=== PATIENT | female | born 1935 | race Caucasian/White ===

== ENCOUNTER 2022-02-02 13:25 | Inpatient (IN) ==
--- NOTE | 2022-02-02 14:01 | Emergency Department Note ---
Impression & Plan TIAN (acute kidney injury), Dementia, Acute UTI, Hematuria, Elevated lactic acid level ED Provider Note Provider: Alfonso Rivera MD DATE OF SERVICE: 02/02/2022 CHIEF COMPLAINT: Bloody urine HISTORY OF PRESENT ILLNESS: Patient is a 86-year-old female with a past medical history including dementia, depression, hypertension, CKD, and anemia via ambulance from her care facility today reportedly with hematuria developing since yesterday. Patient herself unfortunately has some dementia is not a good historian. She does not relate that her urine is abnormal denies significant shortness breath or chest pain. Does report a little bit of abdominal tenderness on exam. Patient's paperwork does indicate the patient is on aspirin. Contacted the facility for additional history and nursing staff they report again that the patient began developed hematuria overnight. They report she did not void this morning or have much to eat the last day or 2. They states he is not the best eater. Otherwise her mental status is unchanged. There is no reported trauma or fevers or other vomiting. REVIEW OF SYSTEMS: HPI reviewed with the patient however she is not a good historian due to her dementia and doubt significant reliability here. PAST MEDICAL HISTORY: As noted above MEDICATIONS: Reviewed medications from her facility SOCIAL HISTORY: Resides at long-term care facility PHYSICAL EXAM: GENERAL: alert in no acute distress lying on the stretcher. Head: normocephalic and atraumatic EYES: No injection, discharge or icterus. NECK: Trachea midline. ENT: Mucous membranes pink and moist. Pharynx without erythema or exudate. LUNGS: Airway patent. No retractions. Breath sounds clear with good air entry bilaterally. HEART: Regular rate and rhythm. No chest wall tenderness ABDOMEN: Soft mild diffuse tenderness. With nursing staff completing a straight catheterization for mild erythema blood at the urethra noted with some subcutaneous small white nodules across the vulva. BACK: No bilateral flank tenderness. SKIN: Acyanotic, warm, dry, without rashes EXTREMITIES: Without swelling or obvious tenderness with a few subcutaneous seemingly slight bony protrusions along both shins that appear chronic. NEUROLOGICAL: No focal deficits. No aphasia. No facial droop or slurred speech. EK bpm normal sinus rhythm. Some artifact. No acute ST segment elevation or depression with incomplete right bundle branch block. QTc 489. Nonspecific inferior anterior T wave changes. Patient's laboratory studies and imaging reviewed. Differential includes Appendicitis, infections, diverticulitis, UTI, obstruction, mesenteric ischemia, aortic pathology, inflammatory bowel disease, renal colic, PUD, pancreatitis, biliary pathology, hernia, volvulus, constipation, as well as other pathologies. IMPRESSION/MEDICAL DECISION MAKING: Patient with underlying dementia no reported trauma or fevers. Here patient does only voice complaints to abdomen but not a good historian due to her dementia. Some mild diffuse abdominal tenderness with hematuria CT scan of the abdomen pelvis to be obtained. Basic blood work obtained. Straight cath performed with some bloody urine and clots of [place] color obtained but not a large amount. Lower suspicion for retention. Given gentle IV fluid hydration. Patient not tachycardic, febrile, or hypotensive. No leukocytosis however urinalysis shows blood and a lot of white blood cells and leuk esterase. Question infection. Lactate elevated 4.4. Given IV fluid hydration and will cover broadly at this time pending cultures Zosyn. Evidence of TIAN with creatinine elevated 2.1 today. Troponin also is elevated 91 although the patient denies any chest discomfort. EKG obtained. Lipase also somewhat elevated. CT the abdomen pelvis per radiology with evidence of cystitis but no evidence of hydronephrosis, bowel obstruction, kidney stone, or other significant abnormality per report. Again patient receiving IV fluid resuscitation received Zosyn. Believe likely infectious in nature. Given elevated lactate, dementia status, and evidence of poor hydration believe further care here at the hospital is indicated. Hospitalist contacted. DIAGNOSIS: Hematuria, acute UTI, elevated lactate DISPOSITION: Hospitalist will evaluate Past Med/Surg History Medical History CAD (coronary artery disease) Chronic kidney disease Dementia Depression HTN (hypertension) Hypercholesterolemia Osteoporosis Surgical History H/O total hysterectomy History of cholecystectomy Family History (Updated 02/02/22 @ 18:35 by Eldon Yost MD) Mother Asthma Diabetes Heart disease Social History Smoking Status: Never smoker Hx Alcohol Use: No Hx Substance Use: No Preferred Language: Maltese marital status: / current occupational status: retired Feels Safe at Home: Yes Dental Care, Regularly: No Allergies Allergies Allergy/AdvReac Type Severity Reaction Status Date / Time methadone Allergy Verified 12/08/21 15:26 propoxyphene Allergy Verified 12/08/21 15:26 Home Meds Home Medications Medication Instructions Recorded Confirmed ferrous sulfate 325 mg (65 mg 325 mg PO DAILY #30 tabs 12/31/18 02/02/22 iron) tablet metoprolol succinate 25 mg 12.5 mg PO DAILY 02/02/22 02/02/22 tablet,extended release 24 hr sertraline 25 mg tablet 25 mg PO DAILY 02/02/22 02/02/22 Previous Rx's Medication Instructions Recorded cholecalciferol (vitamin D3) 25 1,000 unit PO DAILY #30 tabs 05/24/21 mcg (1,000 unit) tablet sennosides 8.6 mg capsule 8.6 mg PO BID #60 caps 05/25/21 donepezil 10 mg tablet 10 mg PO DAILY #90 tabs 05/27/21 rosuvastatin 10 mg tablet 10 mg PO DAILY #90 tabs 06/21/21 aspirin 81 mg tablet,delayed 81 mg PO DAILY #90 tabs 06/24/21 release magnesium oxide 400 mg PO DAILY #30 caps 06/24/21 polyethylene glycol 3350 17 17 g PO DAILY #510 grams 10/22/21 gram/dose oral powder lisinopril 5 mg tablet 5 mg PO DAILY #30 tabs 12/08/21 Results & Data (ED) Vital Signs Vital Signs - 24 hr 02/02/22 13:25 02/02/22 13:56 02/02/22 20:00 Temperature 36.4 C L Temperature Source Oral Pulse Rate 73 73 63 Respiratory Rate 18 18 16 Respiratory Effort / Characteristics Non-Labored Spontaneous Respiratory Depth Normal Respiratory Pattern Regular Blood Pressure 135/75 136/36 L Blood Pressure Mean 95 69 Blood Pressure Position Lying Pulse Oximetry 94 94 Oxygen Delivery Method Room Air Room Air Room Air Sepsis Recent Fever Within 48 Hours No Sepsis New/Unexplained Change in Mental Status N/A Sepsis Action Taken by Nursing No Action Required Laboratory Data Result diagrams: 02/02/22 14:08 02/02/22 14:08 Lab Results 02/02/22 02/02/22 02/02/22 Range/Units 14:00 14:08 14:08 WBC (4.8-10.8) K/ul RBC (3.93-5.22) M/uL Hgb (12.0-16.0) g/dl Hct (34.1-44.9) % MCV (80.0-100.0) fL MCH (25.0-34.0) pg MCHC (32.0-36.0) g/dL RDW Std Deviation (36.4-46.3) fL RDW Coeff of Thelma (11.5-14.5) % Plt Count (130-400) K/uL MPV (9.4-12.3) fL Immature Gran % (Auto) % Neut % (Auto) % Lymph % (Auto) % [place] % (Auto) % Eos % (Auto) % Baso % (Auto) % Neut # (Auto) (1.4-6.5) K/uL Lymph # (Auto) (1.2-3.4) K/uL [place] # (Auto) (0.24-0.82) K/uL Eos # (Auto) (0-0.50) K/uL Baso # (Auto) (0-0.2) K/uL Immature Gran # (Auto) (0.00-0.02) K/uL PT 10.9 (9.0-12.0) Seconds INR 1.0 (0.9-1.1) Sodium (136-145) mmol/L Potassium (3.5-5.1) mmol/L Chloride (98-107) mmol/L Carbon Dioxide (21-32) mmol/L Anion Gap (3-11) BUN (6-23) mg/dl Creatinine (0.6-1.2) mg/dl Est Cr Clr Drug Dosing Est GFR ( Amer) ml/min Est GFR (Non-Af Amer) ml/min BUN/Creatinine Ratio (10-20) Glucose (70-99(Fasting)) mg/dl Lactate 4.4 H* (0.4-2.0) mmol/L Calcium (8.5-10.1) mg/dl Total Bilirubin (0.2-1.0) mg/dl AST (13-39) U/L ALT (7-52) U/L Alkaline Phosphatase (34-104) U/L Troponin I High Sens (0-14) pg/ml Total Protein (6.0-8.3) gm/dl Albumin (3.4-5.0) gm/dl Globulin (2.5-4.0) gm/dl Albumin/Globulin Ratio (0.9-2) Lipase (11-82) U/L Urine Color Brown Urine Appearance Turbid A (Clear) Urine pH >= 9.0 H (4.5-7.5) Ur Specific [place] <= 1.005 (1.000-1.030) Urine Protein 3+ H (Negative) Urine Glucose (UA) Negative (Negative) Urine Ketones Negative (Negative) Urine Blood 3+ H (Negative) Urine Nitrite Negative (Negative) Urine Bilirubin 1+ H (Negative) Urine Urobilinogen Negative (Negative) Ur Leukocyte Esterase 3+ H (Negative) Urine RBC >30 H (0-4) /hpf Urine WBC >30 H (0-5) /hpf Ur Epithelial Cells 0-5 (0-5) /lpf Amorphous Sediment Present A (None Prsent) Urine Bacteria Negative (Negative) SARS-CoV-2, RNA, NAAT (NEGATIVE) 02/02/22 02/02/22 02/02/22 Range/Units 14:08 14:08 20:46 WBC 8.57 (4.8-10.8) K/ul RBC 4.43 (3.93-5.22) M/uL Hgb 13.6 (12.0-16.0) g/dl Hct 41.8 (34.1-44.9) % MCV 94.4 (80.0-100.0) fL MCH 30.7 (25.0-34.0) pg MCHC 32.5 (32.0-36.0) g/dL RDW Std Deviation 45.1 (36.4-46.3) fL RDW Coeff of Thelma 13.1 (11.5-14.5) % Plt Count 246 (130-400) K/uL MPV 10.7 (9.4-12.3) fL Immature Gran % (Auto) 0.4 % Neut % (Auto) 67.4 % Lymph % (Auto) 19.0 % [place] % (Auto) 11.4 % Eos % (Auto) 1.4 % Baso % (Auto) 0.4 % Neut # (Auto) 5.78 (1.4-6.5) K/uL Lymph # (Auto) 1.63 (1.2-3.4) K/uL [place] # (Auto) 0.98 H (0.24-0.82) K/uL Eos # (Auto) 0.12 (0-0.50) K/uL Baso # (Auto) 0.03 (0-0.2) K/uL Immature Gran # (Auto) 0.03 H (0.00-0.02) K/uL PT (9.0-12.0) Seconds INR (0.9-1.1) Sodium 139 (136-145) mmol/L Potassium 5.0 (3.5-5.1) mmol/L Chloride 103 (98-107) mmol/L Carbon Dioxide 23 (21-32) mmol/L Anion Gap 13 H (3-11) BUN 54 H (6-23) mg/dl Creatinine 2.19 H (0.6-1.2) mg/dl Est Cr Clr Drug Dosing Not Reportable Est GFR ( Amer) 22.6 ml/min Est GFR (Non-Af Amer) 19.5 ml/min BUN/Creatinine Ratio 24.7 H (10-20) Glucose 83 (70-99(Fasting)) mg/dl Lactate 1.2 (0.4-2.0) mmol/L Calcium 9.8 (8.5-10.1) mg/dl Total Bilirubin 0.3 (0.2-1.0) mg/dl AST 18 (13-39) U/L ALT 8 (7-52) U/L Alkaline Phosphatase 71 (34-104) U/L Troponin I High Sens 91.6 H* (0-14) pg/ml Total Protein 6.9 (6.0-8.3) gm/dl Albumin 3.8 (3.4-5.0) gm/dl Globulin 3.1 (2.5-4.0) gm/dl Albumin/Globulin Ratio 1.2 (0.9-2) Lipase 188 H (11-82) U/L Urine Color Urine Appearance (Clear) Urine pH (4.5-7.5) Ur Specific [place] (1.000-1.030) Urine Protein (Negative) Urine Glucose (UA) (Negative) Urine Ketones (Negative) Urine Blood (Negative) Urine Nitrite (Negative) Urine Bilirubin (Negative) Urine Urobilinogen (Negative) Ur Leukocyte Esterase (Negative) Urine RBC (0-4) /hpf Urine WBC (0-5) /hpf Ur Epithelial Cells (0-5) /lpf Amorphous Sediment (None Prsent) Urine Bacteria (Negative) SARS-CoV-2, RNA, NAAT (NEGATIVE) 02/02/22 Range/Units Unknown WBC (4.8-10.8) K/ul RBC (3.93-5.22) M/uL Hgb (12.0-16.0) g/dl Hct (34.1-44.9) % MCV (80.0-100.0) fL MCH (25.0-34.0) pg MCHC (32.0-36.0) g/dL RDW Std Deviation (36.4-46.3) fL RDW Coeff of Thelma (11.5-14.5) % Plt Count (130-400) K/uL MPV (9.4-12.3) fL Immature Gran % (Auto) % Neut % (Auto) % Lymph % (Auto) % [place] % (Auto) % Eos % (Auto) % Baso % (Auto) % Neut # (Auto) (1.4-6.5) K/uL Lymph # (Auto) (1.2-3.4) K/uL [place] # (Auto) (0.24-0.82) K/uL Eos # (Auto) (0-0.50) K/uL Baso # (Auto) (0-0.2) K/uL Immature Gran # (Auto) (0.00-0.02) K/uL PT (9.0-12.0) Seconds INR (0.9-1.1) Sodium (136-145) mmol/L Potassium (3.5-5.1) mmol/L Chloride (98-107) mmol/L Carbon Dioxide (21-32) mmol/L Anion Gap (3-11) BUN (6-23) mg/dl Creatinine (0.6-1.2) mg/dl Est Cr Clr Drug Dosing Est GFR ( Amer) ml/min Est GFR (Non-Af Amer) ml/min BUN/Creatinine Ratio (10-20) Glucose (70-99(Fasting)) mg/dl Lactate (0.4-2.0) mmol/L Calcium (8.5-10.1) mg/dl Total Bilirubin (0.2-1.0) mg/dl AST (13-39) U/L ALT (7-52) U/L Alkaline Phosphatase (34-104) U/L Troponin I High Sens (0-14) pg/ml Total Protein (6.0-8.3) gm/dl Albumin (3.4-5.0) gm/dl Globulin (2.5-4.0) gm/dl Albumin/Globulin Ratio (0.9-2) Lipase (11-82) U/L Urine Color Urine Appearance (Clear) Urine pH (4.5-7.5) Ur Specific [place] (1.000-1.030) Urine Protein (Negative) Urine Glucose (UA) (Negative) Urine Ketones (Negative) Urine Blood (Negative) Urine Nitrite (Negative) Urine Bilirubin (Negative) Urine Urobilinogen (Negative) Ur Leukocyte Esterase (Negative) Urine RBC (0-4) /hpf Urine WBC (0-5) /hpf Ur Epithelial Cells (0-5) /lpf Amorphous Sediment (None Prsent) Urine Bacteria (Negative) SARS-CoV-2, RNA, NAAT NEGATIVE (NEGATIVE) Administered Medications Discontinued Medications Sodium Chloride (Nss) 500 mls @ 999 mls/hr IV .Q31M ONE Stop: 02/02/22 14:33 Last Infusion: 02/02/22 15:26 Dose: 0 mls/hr Documented By: Admin: 02/02/22 14:35 Dose: 999 mls/hr Documented By: ED Piperacillin Sod/Tazobactam Sod (Zosyn) 4.5 gm in 120 mls @ 240 mls/hr IV NOW ONE Stop: 02/02/22 15:32 Last Infusion: 02/02/22 16:07 Dose: 0 mls/hr Documented By: Admin: 02/02/22 15:26 Dose: 240 mls/hr Documented By: RUSLAN Lactated Ringer's (Lr) 1,000 mls @ 999 mls/hr IV .Q1H1M ONE Stop: 02/02/22 16:04 Last Infusion: 02/02/22 20:52 Dose: 0 mls/hr Documented By: Infusion: 02/02/22 16:07 Dose: 0 mls/hr Documented By: Admin: 02/02/22 15:26 Dose: 999 mls/hr Documented By: KV Midazolam HCl (Midazolam Hcl 1 Mg/Ml 2ml Vial) 0.5 mg IV NOW STA Stop: 02/02/22 16:15 Last Admin: 02/02/22 16:28 Dose: 0.5 mg Documented By: KV Imaging Data Radiologist's Impression: Abdomen/Pelvis CT 02/02/22 13:54 CT OF THE ABDOMEN AND PELVIS WITHOUT CONTRAST CLINICAL HISTORY: Abdominal pain, hematuria. COMPARISON STUDY: No previous studies for comparison. TECHNIQUE: Axial images of the abdomen and pelvis were obtained without IV contrast. Images were reviewed in the axial, sagittal, and coronal planes. Automated exposure control was utilized for the study. A dose lowering technique was utilized adhering to the principles of ALARA. FINDINGS: This exam is compromised given difficulty positioning. A moderate sized hiatal hernia with partially intrathoracic stomach is noted. No pneumatos is, free air or portal venous gas is present. No renal or ureteral calculi are present. There are possible tiny bladder calculi. Note is made of moderate bladder wall thickening with adjacent stranding. There is trace gas within the bladder. There is no hydronephrosis. Water attenuation left renal lesion probably reflects a cyst. Moderate renal atrophy is noted. Evaluation of the remainder of the abdomen and pelvis is suboptimal on this unenhanced exam. Note is made of cardiomegaly with extensive coronary artery calcification. Unenhanced images of liver, spleen, adrenal glands and pancreas are unremarkable. There is no evidence for a bowel obstruction. Colonic diverticulosis is noted. There is no evidence for acute diverticulitis. There is no lymphadenopathy. No acute fracture within visualized skeletal structures. IVC filter is in place. IMPRESSION: 1. Moderate bladder wall thickening with adjacent stranding. This favors cystitis and could be correlated with urinalysis. Possible tiny bladder calculi. 2. No urinary calculi or hydronephrosis. 3. No bowel obstruction. Colonic diverticulosis without evidence for acute diverticulitis. 4. Hiatal hernia with partially intrathoracic stomach. 5. Exam compromised given difficulty positioning. ACT 112: Negative or not required by law. Electronically signed by: Srinivasa Zamudio M.D. 02/02/2022 5:13 PM Discharge Plan Visit Data Chief Complaint: Hematuria ED Provider: Alfonso Rivera Discharge Problem: TIAN (acute kidney injury), Dementia, Acute UTI, Hematuria, Elevated lactic acid level Patient Disposition: Being Evaluated by Hospitalist Forms Stand Alone Forms: My [facility] Prescriptions Prescriptions: No Action cholecalciferol (vitamin D3) 25 mcg (1,000 unit) tablet 1,000 unit PO DAILY Qty: 30 0RF sennosides 8.6 mg capsule 8.6 mg PO BID Qty: 60 11RF donepezil 10 mg tablet 10 mg PO DAILY Qty: 90 0RF rosuvastatin 10 mg tablet 10 mg PO DAILY Qty: 90 3RF aspirin 81 mg tablet,delayed release (DR/EC) 81 mg PO DAILY Qty: 90 1RF magnesium oxide 400 mg magnesium capsule 400 mg PO DAILY Qty: 30 0RF polyethylene glycol 3350 17 gram/dose powder 17 g PO DAILY Qty: 510 5RF lisinopril 5 mg tablet 5 mg PO DAILY Qty: 30 5RF ferrous sulfate 325 mg (65 mg iron) tablet 325 mg PO DAILY Qty: 30 sertraline 25 mg tablet 25 mg PO DAILY metoprolol succinate 25 mg tablet extended release 24 hr 12.5 mg PO DAILY Referrals Referrals: Adis Esquivel MD [Physician] - : Dementia Qualifiers: Dementia type: unspecified type Hematuria Qualifiers: Hematuria type: gross Qualified Code(s): R31.0 - Gross hematuria
[2022-02-02] MEDS ORDERED: SODIUM CHLORIDE 0.9% 500 ML IV ONE (14:03)
[2022-02-02 14:25] LABS: Basophils # (auto) 0.03 K/uL (0-0.2); Basophils % (auto) 0.4 %; Eosinophils # (auto) 0.12 K/uL (0-0.50); Eosinophils % (auto) 1.4 %; Hematocrit (blood only) 41.8 % (34.1-44.9); Hemoglobin 13.6 g/dl (12.0-16.0); Immature Granulocytes # (auto) 0.03 K/uL (0.00-0.02); Immature Granulocytes % (auto) 0.4 %; Lymphocytes # (auto) 1.63 K/uL (1.2-3.4); Mean Corpuscular Hemoglobin 30.7 pg (25.0-34.0); Mean Corpuscular Hgb Conc 32.5 g/dL (32.0-36.0); Mean Corpuscular Volume 94.4 fL (80.0-100.0); Mean Platelet Volume 10.7 fL (9.4-12.3); Monocytes # (auto) 0.98 K/uL (0.24-0.82); Monocytes % (auto) 11.4 %; Neutrophils # (auto) 5.78 K/uL (1.4-6.5); Neutrophils % (auto) 67.4 %; Platelet Count 246 K/uL (130-400); RDW Coefficient of Variation 13.1 % (11.5-14.5); RDW Standard Deviation 45.1 fL (36.4-46.3); Red Blood Count 4.43 M/uL (3.93-5.22); White Blood Count 8.57 K/ul (4.8-10.8)
[2022-02-02 14:36] LABS: Prothrombin Time 10.9 Seconds (9.0-12.0)
[2022-02-02 14:52] LABS: Appearance Urine Turbid (Clear); Bilirubin Urine 1+ (Negative); Blood Urine 3+ (Negative); Color Urine Brown; Glucose Urine UA Negative (Negative); Ketones Urine Negative (Negative); Leukocyte Esterase Urine 3+ (Negative); Nitrite Urine Negative (Negative); Protein Urine 3+ (Negative); Specific Gravity Urine <= 1.005 (1.000-1.030); Urobilinogen Urine Negative (Negative); pH Urine >= 9.0 (4.5-7.5)
[2022-02-02 14:56] LABS: Epithelial Cell Urine 0-5 /lpf (0-5); RBC Urine >30 /hpf (0-4); WBC Urine >30 /hpf (0-5)
[2022-02-02 14:57] LABS: Amorphous Sediment Urine Present (None Prsent); Bacteria Urine Negative (Negative)
[2022-02-02] MEDS ORDERED: PIPERACILLIN/TAZOBACTAM 4.5 GM/120 ML BAG IV ONE (15:03)
[2022-02-02] MEDS ORDERED: LACTATED RINGER'S 1,000 ML IV ONE (15:04)
[2022-02-02 15:05] LABS: Alanine Aminotransferase 8 U/L (7-52); Albumin Globulin Ratio 1.2 (0.9-2); Albumin Level 3.8 gm/dl (3.4-5.0); Alkaline Phosphatase 71 U/L (34-104); Anion Gap 13 (3-11); Aspartate Aminotransferase 18 U/L (13-39); BUN Creatinine Ratio 24.7 (10-20); Bilirubin,Total 0.3 mg/dl (0.2-1.0); Blood Urea Nitrogen 54 mg/dl (6-23); Calcium 9.8 mg/dl (8.5-10.1); Carbon Dioxide 23 mmol/L (21-32); Chloride 103 mmol/L (98-107); Est GFR (African American) 22.6 ml/min; Est GFR (Non-African American) 19.5 ml/min; Globulin 3.1 gm/dl (2.5-4.0); Glucose 83 mg/dl (70-99(Fasting)); Lipase 188 U/L (11-82); Sodium 139 mmol/L (136-145); Total Protein 6.9 gm/dl (6.0-8.3)
[2022-02-02 15:10] LABS: Troponin I High Sensitivity 91.6 pg/ml (0-14)
[2022-02-02] MEDS ORDERED: MIDAZOLAM HCL 1 MG/ML 2ML VIAL IV STA (16:14)
--- NOTE | 2022-02-02 17:15 | CT Scan Report ---
CT OF THE ABDOMEN AND PELVIS WITHOUT CONTRAST CLINICAL HISTORY: Abdominal pain, hematuria. COMPARISON STUDY: No previous studies for comparison. TECHNIQUE: Axial images of the abdomen and pelvis were obtained without IV contrast. Images were revi ewed in the axial, sagittal, and coronal planes. Automated exposure control was utilized for the serge dy. A dose lowering technique was utilized adhering to the principles of ALARA. FINDINGS: This exam is compromised given difficulty positioning. A moderate sized hiatal hernia with partially intrathoracic stomach is noted. No pneumatosis, free air or portal venous gas is present. N o renal or ureteral calculi are present. There are possible tiny bladder calculi. Note is made of mod erate bladder wall thickening with adjacent stranding. There is trace gas within the bladder. There i s no hydronephrosis. Water attenuation left renal lesion probably reflects a cyst. Moderate renal atr ophy is noted. Evaluation of the remainder of the abdomen and pelvis is suboptimal on this unenhanced exam. Note is made of cardiomegaly with extensive coronary artery calcification. Unenhanced images o f liver, spleen, adrenal glands and pancreas are unremarkable. There is no evidence for a bowel obstr uction. Colonic diverticulosis is noted. There is no evidence for acute diverticulitis. There is no l ymphadenopathy. No acute fracture within visualized skeletal structures. IVC filter is in place. IMPRESSION: 1. Moderate bladder wall thickening with adjacent stranding. This favors cystitis and could be correl ated with urinalysis. Possible tiny bladder calculi. 2. No urinary calculi or hydronephrosis. 3. No bowel obstruction. Colonic diverticulosis without evidence for acute diverticulitis. 4. Hiatal hernia with partially intrathoracic stomach. 5. Exam compromised given difficulty positioning. ACT 112: Negative or not required by law. Electronically signed by: Srinivasa Zamudio M.D. 02/02/2022 5:13 PM
--- NOTE | 2022-02-02 18:26 | History & Physical Report ---
Date of Service February 02, 2022 Assessment & Plan (1) TIAN (acute kidney injury): (2) Hematuria: (3) Elevated lactic acid level: Plan: Hematuria Patient presents with hematuria, since yesterday UA obtained in ED In November patient seen in [place] ED, diagnosed with cystitis and hematuria, discharged on p.o. antibiotics Currently lactate also elevated at 4.4 and creatinine elevated at 2.19 Per staff at [facility], poor appetite for 2 to 3 days Received IV fluids in ED, and started on IV Zosyn Continue IV Zosyn for now, repeat lactate Urine culture, blood culture pending CT abdomen obtained 1. Moderate bladder wall thickening with adjacent stranding. This favors cystitis and could be correlated with urinalysis. Possible tiny bladder calculi. 2. No urinary calculi or hydronephrosis. If hematuria not improved, consider urology consult TIAN on CKD stage 3 Baseline creatinine seems to be 1.3-1.5 Current creatinine 2.19 Likely prerenal, as staff at [facility] reports poor p.o. intake for past 2 to 3 days IV fluids, repeat BMP in the morning Hold lisinopril Elevated troponin Elevation likely secondary to TIAN on CKD No chest pain reported by the patient or staff Repeat troponin, monitor on telemetry for now History of CAD, hyperlipidemia -Continue Crestor, metoprolol, hold aspirin for now in the setting of hematuria -Hold lisinopril Dementia -Continue donepezil, sertraline DVT ppx: No chemical prophylaxis for DVT at this time, as patient presents with hematuria Code: Not able to discuss CODE STATUS with the patient due to dementia, will need to review patient's paperwork from [facility] History of Present Illness Chief Complaint: Hematuria Primary Care Provider: Adis Fritz DO 86-year-old female, with history of dementia, CKD stage III, hypertension, CAD, hyperlipidemia, who presents from [facility], with hematuria. Per ED provider/[facility] staff, patient started to reside there beginning of December, for past few days she was not acting herself, and had very poor appetite for past 2 to 3 days. Overnight she developed hematuria. Due to dementia, patient is not able to provide much history. Per chart review, patient presented in November in [place] ED, with acute cystitis and hematuria as well, was treated at that time with cephalexin. Today on her evaluation in the ED, UA significant for gross hematuria, elevated lactate at 4.4, troponin elevated at 91.6. Creatinine elevated at 2.19. No complaints of chest pain. EKG reviewed, showing normal sinus rhythm, and incomplete right bundle branch block. CT abdomen pelvis also obtained for f urther evaluation. Blood cultures and urine culture obtained and pending. On my evaluation, patient does not provide any history. She is however awake, and in no distress. She says "hi" several times, but on my physical exam, she says "ouch" or "no". Very difficult to obtain any significant information from the patient herself. Allergies Allergy/AdvReac Type Severity Reaction Status Date / Time methadone Allergy Verified 12/08/21 15:26 propoxyphene Allergy Verified 12/08/21 15:26 Home Medications Medication Instructions Recorded Confirmed Type ferrous sulfate 325 mg (65 mg 325 mg PO DAILY #30 tabs 12/31/18 02/02/22 History iron) tablet cholecalciferol (vitamin D3) 25 1,000 unit PO DAILY #30 tabs 05/24/21 02/02/22 Rx mcg (1,000 unit) tablet sennosides 8.6 mg capsule 8.6 mg PO BID #60 caps 05/25/21 02/02/22 Rx donepezil 10 mg tablet 10 mg PO DAILY #90 tabs 05/27/21 02/02/22 Rx rosuvastatin 10 mg tablet 10 mg PO DAILY #90 tabs 06/21/21 02/02/22 Rx aspirin 81 mg tablet,delayed 81 mg PO DAILY #90 tabs 06/24/21 02/02/22 Rx release magnesium oxide 400 mg PO DAILY #30 caps 06/24/21 02/02/22 Rx polyethylene glycol 3350 17 17 g PO DAILY #510 grams 10/22/21 02/02/22 Rx gram/dose oral powder lisinopril 5 mg tablet 5 mg PO DAILY #30 tabs 12/08/21 02/02/22 Rx metoprolol succinate 25 mg 12.5 mg PO DAILY 02/02/22 02/02/22 History tablet,extended release 24 hr sertraline 25 mg tablet 25 mg PO DAILY 02/02/22 02/02/22 History Past Med/Surg History Medical History CAD (coronary artery disease) Chronic kidney disease Dementia Depression HTN (hypertension) Hypercholesterolemia Osteoporosis Surgical History H/O total hysterectomy History of cholecystectomy Family History (Updated 02/02/22 @ 18:35 by Eldon Yost MD) Mother Asthma Diabetes Heart disease Social History Smoking Status: Never smoker Hx Alcohol Use: No Hx Substance Use: No Preferred Language: Polish marital status: / current occupational status: retired Feels Safe at Home: Yes Dental Care, Regularly: No Review of Systems Review of Systems: Unobtainable due to cognitive status Physical Exam Constitutional: WD/WN, vitals as above Eyes: PERRL, conjunctivae normal, anicteric sclerae ENMT: external ear and nose normal, oropharynx normal Neck: trachea midline, no thyromegaly Respiratory: normal respiratory effort, lungs clear to auscultation Cardiovascular: RRR, no murmur, no edema Chest (Breasts): Chest: normal inspection of chest Gastrointestinal (Abdomen): normal bowel sounds, soft, nontender, no hepatosplenomegaly (says "ouch" when palpating abdomen, but then says "ouch" on any part of PE) Musculoskeletal: no cyanosis or clubbing, extremities motor strength 5/5 Skin: no rashes, warm and dry Neurologic: PERRL, EOMI, accommodation nl, no face palsy, no dysarthria Results & Data Results & Data ([facility]) Vital Signs (Past 12 Hours) Vital Signs Temp Pulse Resp BP Pulse Ox O2 Del Method 02/02/22 13:56 73 18 94 Room Air 02/02/22 13:25 36.4 C L 73 18 135/75 94 Room Air Laboratory Results 02/02/22 02/02/22 02/02/22 Range/Units Unknown 14:08 14:08 WBC 8.57 (4.8-10.8) K/ul RBC 4.43 (3.93-5.22) M/uL Hgb 13.6 (12.0-16.0) g/dl Hct 41.8 (34.1-44.9) % MCV 94.4 (80.0-100.0) fL MCH 30.7 (25.0-34.0) pg MCHC 32.5 (32.0-36.0) g/dL RDW Std Deviation 45.1 (36.4-46.3) fL RDW Coeff of Thelma 13.1 (11.5-14.5) % Plt Count 246 (130-400) K/uL MPV 10.7 (9.4-12.3) fL Immature Gran % (Auto) 0.4 % Neut % (Auto) 67.4 % Lymph % (Auto) 19.0 % [place] % (Auto) 11.4 % Eos % (Auto) 1.4 % Baso % (Auto) 0.4 % Neut # (Auto) 5.78 (1.4-6.5) K/uL Lymph # (Auto) 1.63 (1.2-3.4) K/uL [place] # (Auto) 0.98 H (0.24-0.82) K/uL Eos # (Auto) 0.12 (0-0.50) K/uL Baso # (Auto) 0.03 (0-0.2) K/uL Immature Gran # (Auto) 0.03 H (0.00-0.02) K/uL PT (9.0-12.0) Seconds INR (0.9-1.1) Sodium 139 (136-145) mmol/L Potassium 5.0 (3.5-5.1) mmol/L Chloride 103 (98-107) mmol/L Carbon Dioxide 23 (21-32) mmol/L Anion Gap 13 H (3-11) BUN 54 H (6-23) mg/dl Creatinine 2.19 H (0.6-1.2) mg/dl Est Cr Clr Drug Dosing Not Reportable Est GFR ( Amer) 22.6 ml/min Est GFR (Non-Af Amer) 19.5 ml/min BUN/Creatinine Ratio 24.7 H (10-20) Glucose 83 (70-99(Fasting)) mg/dl Lactate (0.4-2.0) mmol/L Calcium 9.8 (8.5-10.1) mg/dl Total Bilirubin 0.3 (0.2-1.0) mg/dl AST 18 (13-39) U/L ALT 8 (7-52) U/L Alkaline Phosphatase 71 (34-104) U/L Troponin I High Sens 91.6 H* (0-14) pg/ml Total Protein 6.9 (6.0-8.3) gm/dl Albumin 3.8 (3.4-5.0) gm/dl Globulin 3.1 (2.5-4.0) gm/dl Albumin/Globulin Ratio 1.2 (0.9-2) Lipase 188 H (11-82) U/L Urine Color Urine Appearance (Clear) Urine pH (4.5-7.5) Ur Specific [place] (1.000-1.030) Urine Protein (Negative) Urine Glucose (UA) (Negative) Urine Ketones (Negative) Urine Blood (Negative) Urine Nitrite (Negative) Urine Bilirubin (Negative) Urine Urobilinogen (Negative) Ur Leukocyte Esterase (Negative) Urine RBC (0-4) /hpf Urine WBC (0-5) /hpf Ur Epithelial Cells (0-5) /lpf Amorphous Sediment (None Prsent) Urine Bacteria (Negative) SARS-CoV-2, RNA, NAAT NEGATIVE (NEGATIVE) 02/02/22 02/02/22 02/02/22 Range/Units 14:08 14:08 14:00 WBC (4.8-10.8) K/ul RBC (3.93-5.22) M/uL Hgb (12.0-16.0) g/dl Hct (34.1-44.9) % MCV (80.0-100.0) fL MCH (25.0-34.0) pg MCHC (32.0-36.0) g/dL RDW Std Deviation (36.4-46.3) fL RDW Coeff of Thelma (11.5-14.5) % Plt Count (130-400) K/uL MPV (9.4-12.3) fL Immature Gran % (Auto) % Neut % (Auto) % Lymph % (Auto) % [place] % (Auto) % Eos % (Auto) % Baso % (Auto) % Neut # (Auto) (1.4-6.5) K/uL Lymph # (Auto) (1.2-3.4) K/uL [place] # (Auto) (0.24-0.82) K/uL Eos # (Auto) (0-0.50) K/uL Baso # (Auto) (0-0.2) K/uL Immature Gran # (Auto) (0.00-0.02) K/uL PT 10.9 (9.0-12.0) Seconds INR 1.0 (0.9-1.1) Sodium (136-145) mmol/L Potassium (3.5-5.1) mmol/L Chloride (98-107) mmol/L Carbon Dioxide (21-32) mmol/L Anion Gap (3-11) BUN (6-23) mg/dl Creatinine (0.6-1.2) mg/dl Est Cr Clr Drug Dosing Est GFR ( Amer) ml/min Est GFR (Non-Af Amer) ml/min BUN/Creatinine Ratio (10-20) Glucose (70-99(Fasting)) mg/dl Lactate 4.4 H* (0.4-2.0) mmol/L Calcium (8.5-10.1) mg/dl Total Bilirubin (0.2-1.0) mg/dl AST (13-39) U/L ALT (7-52) U/L Alkaline Phosphatase (34-104) U/L Troponin I High Sens (0-14) pg/ml Total Protein (6.0-8.3) gm/dl Albumin (3.4-5.0) gm/dl Globulin (2.5-4.0) gm/dl Albumin/Globulin Ratio (0.9-2) Lipase (11-82) U/L Urine Color Brown Urine Appearance Turbid A (Clear) Urine pH >= 9.0 H (4.5-7.5) Ur Specific [place] <= 1.005 (1.000-1.030) Urine Protein 3+ H (Negative) Urine Glucose (UA) Negative (Negative) Urine Ketones Negative (Negative) Urine Blood 3+ H (Negative) Urine Nitrite Negative (Negative) Urine Bilirubin 1+ H (Negative) Urine Urobilinogen Negative (Negative) Ur Leukocyte Esterase 3+ H (Negative) Urine RBC >30 H (0-4) /hpf Urine WBC >30 H (0-5) /hpf Ur Epithelial Cells 0-5 (0-5) /lpf Amorphous Sediment Present A (None Prsent) Urine Bacteria Negative (Negative) SARS-CoV-2, RNA, NAAT (NEGATIVE) Diagnostic Findings CT abdomen/pelvis FINDINGS: This exam is compromised given difficulty positioning. A moderate sized hiatal hernia with partially intrathoracic stomach is noted. No pneumatosis, free air or portal venous gas is present. No renal or ureteral calculi are present. There are possible tiny bladder calculi. Note is made of moderate bladder wall thickening with adjacent stranding. There is trace gas within the bladder. There is no hydronephrosis. Water attenuation left renal lesion probably reflects a cyst. Moderate renal atrophy is noted. Evaluation of the remainder of the abdomen and pelvis is suboptimal on this unenhanced exam. Note is made of cardiomegaly with extensive coronary artery calcification. Unenhanced images of liver, spleen, adrenal glands and pancreas are unremarkable. There is no evidence for a bowel obstruction. Colonic diverticulosis is noted. There is no evidence for acute diverticulitis. There is no lymphadenopathy. No acute fracture within visualized skeletal structures. IVC filter is in place. IMPRESSION: 1. Moderate bladder wall thickening with adjacent stranding. This favors cystitis and could be correlated with urinalysis. Possible tiny bladder calculi. 2. No urinary calculi or hydronephrosis. 3. No bowel obstruction. Colonic diverticulosis without evidence for acute diverticulitis. 4. Hiatal hernia with partially intrathoracic stomach. 5. Exam compromised given difficulty positioning. (1) Hematuria Hematuria type: gross Qualified Code(s): R31.0 - Gross hematuria
[2022-02-02] MEDS: PIPERACILLIN/TAZOBACTAM 3.375 GM in DEXTROSE 5% 100 ML IV SCH (22:37)
[2022-02-03 06:09] LABS: Hematocrit (blood only) 39.4 % (34.1-44.9); Hemoglobin 12.9 g/dl (12.0-16.0); Mean Corpuscular Hemoglobin 30.4 pg (25.0-34.0); Mean Corpuscular Hgb Conc 32.7 g/dL (32.0-36.0); Mean Corpuscular Volume 92.7 fL (80.0-100.0); Mean Platelet Volume 10.3 fL (9.4-12.3); Platelet Count 195 K/uL (130-400); RDW Coefficient of Variation 13.1 % (11.5-14.5); RDW Standard Deviation 44.4 fL (36.4-46.3); Red Blood Count 4.25 M/uL (3.93-5.22); White Blood Count 8.46 K/ul (4.8-10.8)
[2022-02-03 06:31] LABS: Anion Gap 7 (3-11); BUN Creatinine Ratio 25.4 (10-20); Blood Urea Nitrogen 45 mg/dl (6-23); Calcium 8.9 mg/dl (8.5-10.1); Carbon Dioxide 24 mmol/L (21-32); Chloride 107 mmol/L (98-107); Est GFR (African American) 29.2 ml/min; Est GFR (Non-African American) 25.2 ml/min; Glucose 98 mg/dl (70-99(Fasting)); Magnesium 1.9 mg/dl (1.7-2.4); Phosphorus 3.3 mg/dl (2.5-4.9); Potassium 4.5 mmol/L (3.5-5.1); Sodium 138 mmol/L (136-145)
--- NOTE | 2022-02-03 07:02 | Hospitalist Progress Note ---
Date of Service February 03, 2022 Assessment & Plan (1) TIAN (acute kidney injury): (2) Hematuria: (3) Elevated lactic acid level: Plan: Hematuria Patient presents with hematuria od 1 day In November patient seen in [place] ED, diagnosed with cystitis and hematuria, discharged on p.o. antibiotics On admission- lactate also elevated at 4.4 and creatinine elevated at 2.19 Per staff at [facility], poor appetite for 2 to 3 days Received IV fluids in ED, and started on IV Zosyn Continue IV Zosyn for now, repeat lactate 1.2 Urine culture -positive for gram-negative bacilli blood culture pending CT abdomen obtained 1. Moderate bladder wall thickening with adjacent stranding. This favors cystitis and could be correlated with urinalysis. Possible tiny bladder calculi. 2. No urinary calculi or hydronephrosis. Urology consulted, appreciate their input Hematuria likely secondary to UTI, outpatient follow-up Per RN, pink-tinged urine in the morning, and clear urine this afternoon (02/03) TIAN on CKD stage 3 Baseline creatinine seems to be 1.3-1.5 On admission creatinine 2.19 Likely prerenal, as staff at [facility] reports poor p.o. intake for past 2 to 3 days IV fluids Hold lisinopril Cr improved at 1.7 after IVF Continue with gentle hydration, as patient continues to have very poor p.o. intake Elevated troponin Elevation likely secondary to TIAN on CKD No chest pain reported by the patient or staff Repeat troponin essentially unchanged, monitor on telemetry for now History of CAD, hyperlipidemia -Continue Crestor, metoprolol, hold aspirin for now in the setting of hematuria -Hold lisinopril Dementia -Continue donepezil, sertraline DVT ppx: No chemical prophylaxis for DVT at this time, as patient presents with hematuria CODE STATUS: FULL per [facility], code staus should be discussed further w/ [facility] staff and pt's family Admission and Anticipated Discharge Date Admission Date: February 02, 2022 Subjective Patient seen for follow-up of hematuria, history of dementia Patient cannot provide any meaningful history due to dementia Creatinine improved after IV fluids Urine culture positive for gram-negative bacilli [place]-tinged urine per RN this morning, cleared this afternoon Per RN, minimal p.o. intake Also discussed with urology Review of Systems Review of Systems: All systems reviewed & are unremarkable except as noted in Subjective Physical Exam Physical Exam: Constitutional:L elderly F in NAD Eyes: PERRL, EOMI, conju nctivae normal, an icteric sclerae ENMT: external ear and n ose normal, oropha rynx normal Neck: supple Respiratory: normal respiratory effort, lungs justine ar to auscultation Cardiovascular:L RRR, no murmur, no edema Chest (Breasts): Chest: normal insp ection of chest Gastrointestinal ( Abdomen): normal bowel sound s, soft, nontender Musculoskeletal: moves extremities Skin: no rashes, warm an d dry Neurologic: PERRL, EOMI,moves extremities, poor insight d/t nabor ia Results & Data Results & Data ([facility]) Vital Signs (Past 12 Hours) Vital Signs Pulse Resp BP O2 Del Method 02/03/22 05:00 48 L 14 02/03/22 04:30 47 L 17 02/03/22 04:19 143/55 H 02/03/22 04:19 59 L 18 02/03/22 04:00 56 L 17 02/03/22 03:30 47 L 20 02/03/22 03:00 58 L 25 H 02/03/22 02:30 65 14 02/03/22 02:00 59 L 16 02/03/22 01:30 57 L 19 02/03/22 01:00 59 L 11 L 02/03/22 00:30 47 L 19 02/03/22 00:00 55 L 23 02/02/22 23:30 65 21 02/02/22 23:00 58 L 9 L 02/02/22 22:30 47 L 15 02/02/22 22:00 51 L 14 02/02/22 21:30 55 L 18 02/02/22 21:00 54 L 14 02/02/22 20:30 63 14 02/02/22 20:01 136/36 L 02/02/22 20:01 63 17 02/02/22 20:00 61 13 02/02/22 19:52 63 19 02/02/22 19:52 144/64 H 02/02/22 19:30 69 17 02/02/22 20:00 63 16 136/36 L Room Air Laboratory Results 02/03/22 02/03/22 02/02/22 Range/Units 05:55 05:55 Unknown WBC 8.46 (4.8-10.8) K/ul RBC 4.25 (3.93-5.22) M/uL Hgb 12.9 (12.0-16.0) g/dl Hct 39.4 (34.1-44.9) % MCV 92.7 (80.0-100.0) fL MCH 30.4 (25.0-34.0) pg MCHC 32.7 (32.0-36.0) g/dL RDW Std Deviation 44.4 (36.4-46.3) fL RDW Coeff of Thelma 13.1 (11.5-14.5) % Plt Count 195 (130-400) K/uL MPV 10.3 (9.4-12.3) fL Immature Gran % (Auto) % Neut % (Auto) % Lymph % (Auto) % [place] % (Auto) % Eos % (Auto) % Baso % (Auto) % Neut # (Auto) (1.4-6.5) K/uL Lymph # (Auto) (1.2-3.4) K/uL [place] # (Auto) (0.24-0.82) K/uL Eos # (Auto) (0-0.50) K/uL Baso # (Auto) (0-0.2) K/uL Immature Gran # (Auto) (0.00-0.02) K/uL PT (9.0-12.0) Seconds INR (0.9-1.1) Sodium 138 (136-145) mmol/L Potassium 4.5 (3.5-5.1) mmol/L Chloride 107 (98-107) mmol/L Carbon Dioxide 24 (21-32) mmol/L Anion Gap 7 (3-11) BUN 45 H (6-23) mg/dl Creatinine 1.77 H D (0.6-1.2) mg/dl Est Cr Clr Drug Dosing Not Reportable Est GFR ( Amer) 29.2 ml/min Est GFR (Non-Af Amer) 25.2 ml/min BUN/Creatinine Ratio 25.4 H (10-20) Glucose 98 (70-99(Fasting)) mg/dl Lactate (0.4-2.0) mmol/L Calcium 8.9 (8.5-10.1) mg/dl Phosphorus 3.3 (2.5-4.9) mg/dl Magnesium 1.9 (1.7-2.4) mg/dl Total Bilirubin (0.2-1.0) mg/dl AST (13-39) U/L ALT (7-52) U/L Alkaline Phosphatase (34-104) U/L Troponin I High Sens (0-14) pg/ml Total Protein (6.0-8.3) gm/dl Albumin (3.4-5.0) gm/dl Globulin (2.5-4.0) gm/dl Albumin/Globulin Ratio (0.9-2) Lipase (11-82) U/L Urine Color Urine Appearance (Clear) Urine pH (4.5-7.5) Ur Specific [place] (1.000-1.030) Urine Protein (Negative) Urine Glucose (UA) (Negative) Urine Ketones (Negative) Urine Blood (Negative) Urine Nitrite (Negative) Urine Bilirubin (Negative) Urine Urobilinogen (Negative) Ur Leukocyte Esterase (Negative) Urine RBC (0-4) /hpf Urine WBC (0-5) /hpf Ur Epithelial Cells (0-5) /lpf Amorphous Sediment (None Prsent) Urine Bacteria (Negative) SARS-CoV-2, RNA, NAAT NEGATIVE (NEGATIVE) 02/02/22 02/02/22 02/02/22 Range/Units 20:46 20:46 14:08 WBC (4.8-10.8) K/ul RBC (3.93-5.22) M/uL Hgb (12.0-16.0) g/dl Hct (34.1-44.9) % MCV (80.0-100.0) fL MCH (25.0-34.0) pg MCHC (32.0-36.0) g/dL RDW Std Deviation (36.4-46.3) fL RDW Coeff of Thelma (11.5-14.5) % Plt Count (130-400) K/uL MPV (9.4-12.3) fL Immature Gran % (Auto) % Neut % (Auto) % Lymph % (Auto) % [place] % (Auto) % Eos % (Auto) % Baso % (Auto) % Neut # (Auto) (1.4-6.5) K/uL Lymph # (Auto) (1.2-3.4) K/uL [place] # (Auto) (0.24-0.82) K/uL Eos # (Auto) (0-0.50) K/uL Baso # (Auto) (0-0.2) K/uL Immature Gran # (Auto) (0.00-0.02) K/uL PT (9.0-12.0) Seconds INR (0.9-1.1) Sodium 139 (136-145) mmol/L Potassium 5.0 (3.5-5.1) mmol/L Chloride 103 (98-107) mmol/L Carbon Dioxide 23 (21-32) mmol/L Anion Gap 13 H (3-11) BUN 54 H (6-23) mg/dl Creatinine 2.19 H (0.6-1.2) mg/dl Est Cr Clr Drug Dosing Not Reportable Est GFR ( Amer) 22.6 ml/min Est GFR (Non-Af Amer) 19.5 ml/min BUN/Creatinine Ratio 24.7 H (10-20) Glucose 83 (70-99(Fasting)) mg/dl Lactate 1.2 (0.4-2.0) mmol/L Calcium 9.8 (8.5-10.1) mg/dl Phosphorus (2.5-4.9) mg/dl Magnesium (1.7-2.4) mg/dl Total Bilirubin 0.3 (0.2-1.0) mg/dl AST 18 (13-39) U/L ALT 8 (7-52) U/L Alkaline Phosphatase 71 (34-104) U/L Troponin I High Sens 91.3 H* 91.6 H* (0-14) pg/ml Total Protein 6.9 (6.0-8.3) gm/dl Albumin 3.8 (3.4-5.0) gm/dl Globulin 3.1 (2.5-4.0) gm/dl Albumin/Globulin Ratio 1.2 (0.9-2) Lipase 188 H (11-82) U/L Urine Color Urine Appearance (Clear) Urine pH (4.5-7.5) Ur Specific [place] (1.000-1.030) Urine Protein (Negative) Urine Glucose (UA) (Negative) Urine Ketones (Negative) Urine Blood (Negative) Urine Nitrite (Negative) Urine Bilirubin (Negative) Urine Urobilinogen (Negative) Ur Leukocyte Esterase (Negative) Urine RBC (0-4) /hpf Urine WBC (0-5) /hpf Ur Epithelial Cells (0-5) /lpf Amorphous Sediment (None Prsent) Urine Bacteria (Negative) SARS-CoV-2, RNA, NAAT (NEGATIVE) 02/02/22 02/02/22 02/02/22 Range/Units 14:08 14:08 14:08 WBC 8.57 (4.8-10.8) K/ul RBC 4.43 (3.93-5.22) M/uL Hgb 13.6 (12.0-16.0) g/dl Hct 41.8 (34.1-44.9) % MCV 94.4 (80.0-100.0) fL MCH 30.7 (25.0-34.0) pg MCHC 32.5 (32.0-36.0) g/dL RDW Std Deviation 45.1 (36.4-46.3) fL RDW Coeff of Thelma 13.1 (11.5-14.5) % Plt Count 246 (130-400) K/uL MPV 10.7 (9.4-12.3) fL Immature Gran % (Auto) 0.4 % Neut % (Auto) 67.4 % Lymph % (Auto) 19.0 % [place] % (Auto) 11.4 % Eos % (Auto) 1.4 % Baso % (Auto) 0.4 % Neut # (Auto) 5.78 (1.4-6.5) K/uL Lymph # (Auto) 1.63 (1.2-3.4) K/uL [place] # (Auto) 0.98 H (0.24-0.82) K/uL Eos # (Auto) 0.12 (0-0.50) K/uL Baso # (Auto) 0.03 (0-0.2) K/uL Immature Gran # (Auto) 0.03 H (0.00-0.02) K/uL PT 10.9 (9.0-12.0) Seconds INR 1.0 (0.9-1.1) Sodium (136-145) mmol/L Potassium (3.5-5.1) mmol/L Chloride (98-107) mmol/L Carbon Dioxide (21-32) mmol/L Anion Gap (3-11) BUN (6-23) mg/dl Creatinine (0.6-1.2) mg/dl Est Cr Clr Drug Dosing Est GFR ( Amer) ml/min Est GFR (Non-Af Amer) ml/min BUN/Creatinine Ratio (10-20) Glucose (70-99(Fasting)) mg/dl Lactate 4.4 H* (0.4-2.0) mmol/L Calcium (8.5-10.1) mg/dl Phosphorus (2.5-4.9) mg/dl Magnesium (1.7-2.4) mg/dl Total Bilirubin (0.2-1.0) mg/dl AST (13-39) U/L ALT (7-52) U/L Alkaline Phosphatase (34-104) U/L Troponin I High Sens (0-14) pg/ml Total Protein (6.0-8.3) gm/dl Albumin (3.4-5.0) gm/dl Globulin (2.5-4.0) gm/dl Albumin/Globulin Ratio (0.9-2) Lipase (11-82) U/L Urine Color Urine Appearance (Clear) Urine pH (4.5-7.5) Ur Specific [place] (1.000-1.030) Urine Protein (Negative) Urine Glucose (UA) (Negative) Urine Ketones (Negative) Urine Blood (Negative) Urine Nitrite (Negative) Urine Bilirubin (Negative) Urine Urobilinogen (Negative) Ur Leukocyte Esterase (Negative) Urine RBC (0-4) /hpf Urine WBC (0-5) /hpf Ur Epithelial Cells (0-5) /lpf Amorphous Sediment (None Prsent) Urine Bacteria (Negative) SARS-CoV-2, RNA, NAAT (NEGATIVE) 02/02/22 Range/Units 14:00 WBC (4.8-10.8) K/ul RBC (3.93-5.22) M/uL Hgb (12.0-16.0) g/dl Hct (34.1-44.9) % MCV (80.0-100.0) fL MCH (25.0-34.0) pg MCHC (32.0-36.0) g/dL RDW Std Deviation (36.4-46.3) fL RDW Coeff of Thelma (11.5-14.5) % Plt Count (130-400) K/uL MPV (9.4-12.3) fL Immature Gran % (Auto) % Neut % (Auto) % Lymph % (Auto) % [place] % (Auto) % Eos % (Auto) % Baso % (Auto) % Neut # (Auto) (1.4-6.5) K/uL Lymph # (Auto) (1.2-3.4) K/uL [place] # (Auto) (0.24-0.82) K/uL Eos # (Auto) (0-0.50) K/uL Baso # (Auto) (0-0.2) K/uL Immature Gran # (Auto) (0.00-0.02) K/uL PT (9.0-12.0) Seconds INR (0.9-1.1) Sodium (136-145) mmol/L Potassium (3.5-5.1) mmol/L Chloride (98-107) mmol/L Carbon Dioxide (21-32) mmol/L Anion Gap (3-11) BUN (6-23) mg/dl Creatinine (0.6-1.2) mg/dl Est Cr Clr Drug Dosing Est GFR ( Amer) ml/min Est GFR (Non-Af Amer) ml/min BUN/Creatinine Ratio (10-20) Glucose (70-99(Fasting)) mg/dl Lactate (0.4-2.0) mmol/L Calcium (8.5-10.1) mg/dl Phosphorus (2.5-4.9) mg/dl Magnesium (1.7-2.4) mg/dl Total Bilirubin (0.2-1.0) mg/dl AST (13-39) U/L ALT (7-52) U/L Alkaline Phosphatase (34-104) U/L Troponin I High Sens (0-14) pg/ml Total Protein (6.0-8.3) gm/dl Albumin (3.4-5.0) gm/dl Globulin (2.5-4.0) gm/dl Albumin/Globulin Ratio (0.9-2) Lipase (11-82) U/L Urine Color Brown Urine Appearance Turbid A (Clear) Urine pH >= 9.0 H (4.5-7.5) Ur Specific [place] <= 1.005 (1.000-1.030) Urine Protein 3+ H (Negative) Urine Glucose (UA) Negative (Negative) Urine Ketones Negative (Negative) Urine Blood 3+ H (Negative) Urine Nitrite Negative (Negative) Urine Bilirubin 1+ H (Negative) Urine Urobilinogen Negative (Negative) Ur Leukocyte Esterase 3+ H (Negative) Urine RBC >30 H (0-4) /hpf Urine WBC >30 H (0-5) /hpf Ur Epithelial Cells 0-5 (0-5) /lpf Amorphous Sediment Present A (None Prsent) Urine Bacteria Negative (Negative) SARS-CoV-2, RNA, NAAT (NEGATIVE) Medications Administered Current Inpatient Medications Donepezil HCl (Donepezil Hcl 10 Mg Tab) 10 mg PO DAILY [facility] Stop: 03/05/22 08:59 Last Admin: 02/03/22 12:58 Dose: Not Given Sodium Chloride (Nss 1000ml) 1,000 mls @ 80 mls/hr IV .[id number] ONE Stop: 02/03/22 19:32 Last Admin: 02/03/22 08:29 Dose: 80 mls/hr Piperacillin Sod/Tazobactam (Sod 3.375 gm/ Dextrose) 115 mls @ 28.75 mls/hr IV Q8H [facility]; Protocol Stop: 02/13/22 21:59 Metoprolol Succinate (Metoprolol Succ 25mg Ext Rel Tab) 12.5 mg PO DAILY [facility] Stop: 03/05/22 08:59 Last Admin: 02/03/22 12:58 Dose: Not Given Rosuvastatin Calcium (Rosuvastatin Calcium 10 Mg Tab) 10 mg PO DAILY [facility] Stop: 03/05/22 08:59 Last Admin: 02/03/22 12:58 Dose: Not Given Sertraline HCl (Sertraline Hcl 50 Mg Tablet) 25 mg PO DAILY [facility] Stop: 03/05/22 08:59 Last Admin: 02/03/22 12:59 Dose: Not Given (1) Hematuria Hematuria type: gross Qualified Code(s): R31.0 - Gross hematuria
[2022-02-03] MEDS ORDERED: SODIUM CHLORIDE 0.9% 1000ML 1,000 ML IV ONE (07:03)
--- NOTE | 2022-02-03 10:57 | Urology Consultation ---
Date of Consultation February 03, 2022 Assessment & Plan (1) Hematuria: 86 yo F admitted for hematuria, elevated lactate level, TIAN, and suspected UTI. - Urology consulted for recurrent hematuria. - She is afebrile, hemodynamically stable. - Lab work reviewed - creatinine 1.77, WBC 8.46, Hgb 12.9. - CTAP noted moderate bladder wall thickening with adjacent stranding, possible tiny bladder calculi, no urinary calculi or hydronephrosis. - Urine culture is prelim Gram negative bacilli. Blood cultures are pending. She is on IV Zosyn. - Per ER notes, hematuria with clots on arrival but appears to be clearing now at time of my exam. - She is incontinent and appears to be emptying well, post void residual was 15 mL - continue to monitor. - Continue broad spectrum antibiotics and narrow per sensitivities when available. - No acute intervention at this time. - Continue supportive care and antibiotics per primary team. - Will arrange outpatient follow-up with our service with possible cystoscopy. History of Present Illness Reason for Consultation: recurrent hematuria Requesting Physician: Dr. Yost Attending Physician: Eldon Yost MD History of Present Illness 86 yo F with past medical history of dementia, depression, hypertension, osteoporosis, hyperlipidemia, CAD, and chronic kidney disease admitted for hematuria, elevated lactate level, TIAN, and suspected UTI. Patient presented to [facility] emergency department on 02/02/2022 from her care facility due to reported hematuria x 1 day. Per admitting notes, her long term staff noted poor PO intake for the last 2-3 days and then developed gross hematuria overnight. No reported fevers or trauma. On arrival she was afebrile, hemodynamically stable. Lab work reviewed and creatinine was elevated at 2.19. CBC showed Hgb of 13.6 and no leukocytosis. Troponin noted to be elevated. Lactate was 4.4. UA notable for 3+ blood, 3+ leukocyte esterase, RBC > 30, WBC > 30, negative for bacteria and nitrates. Urine and blood cultures collected. CT abdomen and pelvis without contrast n oted moderate bladder wall thickening with adjacent stranding, possible tiny bladder calculi, no urinary calculi or hydronephrosis. Per ER notes, she was straight catheterized with some bloody urine and clots of [place] color, but not a significant amount. ER course included IV fluids and IV Zosyn. Urology consulted for evaluation of hematuria. Patient seen and examined in ER this AM. She is awake and resting in bed, appears comfortable and in no distress. Patient is not able to provide meaningful history or review of systems secondary to dementia. She denies pain when asked. Patient is voiding spontaneously, she is incontinent of urine and stool. RN at bedside reports pink tinged urine in brief earlier. Per chart review, she presented to [facility] ED in November for acute cystitis with hematuria, was treated with Cephalexin. Per chart review, never smoker. Allergies Allergy/AdvReac Type Severity Reaction Status Date / Time methadone Allergy Verified 12/08/21 15:26 propoxyphene Allergy Verified 12/08/21 15:26 Home Medications Medication Instructions Recorded Confirmed Type ferrous sulfate 325 mg (65 mg 325 mg PO DAILY #30 tabs 12/31/18 02/02/22 History iron) tablet cholecalciferol (vitamin D3) 25 1,000 unit PO DAILY #30 tabs 05/24/21 02/02/22 Rx mcg (1,000 unit) tablet sennosides 8.6 mg capsule 8.6 mg PO BID #60 caps 05/25/21 02/02/22 Rx donepezil 10 mg tablet 10 mg PO DAILY #90 tabs 05/27/21 02/02/22 Rx rosuvastatin 10 mg tablet 10 mg PO DAILY #90 tabs 06/21/21 02/02/22 Rx aspirin 81 mg tablet,delayed 81 mg PO DAILY #90 tabs 06/24/21 02/02/22 Rx release magnesium oxide 400 mg PO DAILY #30 caps 06/24/21 02/02/22 Rx polyethylene glycol 3350 17 17 g PO DAILY #510 grams 10/22/21 02/02/22 Rx gram/dose oral powder lisinopril 5 mg tablet 5 mg PO DAILY #30 tabs 12/08/21 02/02/22 Rx metoprolol succinate 25 mg 12.5 mg PO DAILY 02/02/22 02/02/22 History tablet,extended release 24 hr sertraline 25 mg tablet 25 mg PO DAILY 02/02/22 02/02/22 History Patient History Medical History CAD (coronary artery disease) Chronic kidney disease Dementia Depression HTN (hypertension) Hypercholesterolemia Osteoporosis Surgical History H/O total hysterectomy History of cholecystectomy Family History Mother Asthma Diabetes Heart disease Social History Smoking Status: Never smoker Hx Alcohol Use: No Hx Substance Use: No Preferred Language: American Communication Ability: Impaired Communication Ability Comment: dementia Property Management Bookkeeper Required: No Beliefs That Will Affect Care: None marital status: / Current Living Situation: [facility] Current Living Situation Comment: [facility] current occupational status: retired Other Information That Helps Us Care for You: No Feels Safe at Home: Yes Safety Concerns: Feels Safe At This Time Dental Care, Regularly: No Assistive Devices: Wheelchair Review of Systems Review of Systems: Unobtainable due to cognitive status Physical Exam Constitutional: + thin; no acute distress and not ill appearing Respiratory: normal respiratory effort; no respiratory distress and no labored breathing Cardiovascular: Extremities: no pedal edema Gastrointestinal (Abdomen): Inspection/Auscultation: abdomen normal to inspection; abdomen not distended Musculoskeletal: Head/Neck/Chest: normocephalic and head atraumatic Neurologic: moves all extremities and awake Psychiatric: Orientation: alert Genitourinary: urine in brief appears concentrated yellow, no clots Results & Data ([facility]) Vital Signs (Past 12 Hours) Vital Signs Temp Pulse Pulse Resp BP BP Pulse Ox 02/03/22 07:57 36.5 C 82 18 156/46 H 94 02/03/22 05:00 48 L 14 02/03/22 04:30 47 L 17 02/03/22 04:19 143/55 H 02/03/22 04:19 59 L 18 02/03/22 04:00 56 L 17 02/03/22 03:30 47 L 20 02/03/22 03:00 58 L 25 H 02/03/22 02:30 65 14 02/03/22 02:00 59 L 16 02/03/22 01:30 57 L 19 02/03/22 01:00 59 L 11 L 02/03/22 00:30 47 L 19 02/03/22 00:00 55 L 23 02/02/22 23:30 65 21 02/02/22 23:00 58 L [address] OF THE ABDOMEN AND PELVIS WITHOUT CONTRAST CLINICAL HISTORY: Abdominal pain, hematuria. COMPARISON STUDY: No previous studies for comparison. TECHNIQUE: Axial images of the abdomen and pelvis were obtained without IV contrast. Images were reviewed in the axial, sagittal, and coronal planes. Automated exposure control was utilized for the study. A dose lowering technique was utilized adhering to the principles of ALARA. FINDINGS: This exam is compromised given difficulty positioning. A moderate sized hiatal hernia with partially intrathoracic stomach is noted. No pneumatosis, free air or portal venous gas is present. No renal or ureteral calculi are present. There are possible tiny bladder calculi. Note is made of moderate bladder wall thickening with adjacent stranding. There is trace gas within the bladder. There is no hydronephrosis. Water attenuation left renal lesion probably reflects a cyst. Moderate renal atrophy is noted. Evaluation of the remainder of the abdomen and pelvis is suboptimal on this unenhanced exam. Note is made of cardiomegaly with extensive coronary artery calcification. Unenhanced images of liver, spleen, adrenal glands and pancreas are unremarkable. There is no evidence for a bowel obstruction. Colonic diverticulosis is noted. There is no evidence for acute diverticulitis. There is no lymphadenopathy. No acute fracture within visualized skeletal structures. IVC filter is in place. IMPRESSION: 1. Moderate bladder wall thickening with adjacent stranding. This favors cystitis and could be correlated with urinalysis. Possible tiny bladder calculi. 2. No urinary calculi or hydronephrosis. 3. No bowel obstruction. Colonic diverticulosis without evidence for acute diverticulitis. 4. Hiatal hernia with partially intrathoracic stomach. 5. Exam compromised given difficulty positioning. Results Complete Blood Count Results: RBC 4.25 M/uL (3.93-5.22) 02/03/22 WBC 8.46 K/ul (4.8-10.8) 02/03/22 Hgb 12.9 g/dl (12.0-16.0) 02/03/22 Hct 39.4 % (34.1-44.9) 02/03/22 Plt Count 195 K/uL (130-400) 02/03/22 Results BMP Results: Sodium 138 mmol/L (136-145) 02/03/22 Potassium 4.5 mmol/L (3.5-5.1) 02/03/22 Chloride 107 mmol/L (98-107) 02/03/22 Carbon Dioxide 24 mmol/L (21-32) 02/03/22 Anion Gap 7 (3-11) 02/03/22 BUN 45 mg/dl (6-23) H 02/03/22 Creatinine 1.77 mg/dl (0.6-1.2) H 02/03/22 Glucose 98 mg/dl (70-99(Fasting)) 02/03/22 PG Care Time/CCT Total # of Minutes Spent Total Time Spent with Patient: Total time spent is greater than 50% in coordination of care (as documented) at patient's floor/unit and/or counseling patient: Coding Level of Care Code 76710 Initial Inpt Care Lvl 2 Diagnoses Hematuria R31.0 Hematuria type: gross (1) Hematuria Hematuria type: gross Qualified Code(s): R31.0 - Gross hematuria
[2022-02-03] MEDS: DONEPEZIL HCL 10 MG TAB PO SCH (12:58)
[2022-02-03] MEDS: METOPROLOL SUCC 25MG EXT REL TAB PO SCH (12:58)
[2022-02-03] MEDS: ROSUVASTATIN CALCIUM 10 MG TAB PO SCH (12:58)
[2022-02-03] MEDS: SERTRALINE HCL 50 MG TABLET PO SCH (12:59)
[2022-02-03] MEDS: PIPERACILLIN/TAZOBACTAM 3.375 GM in DEXTROSE 5% 100 ML IV SCH ×2 (13:26→20:55)
[2022-02-03] MEDS ORDERED: PNEUMOCOCCAL Polysaccharide Vaccine 25mcg/0.5mL vial/Syr IM ONE (14:00)
--- NOTE | 2022-02-03 21:07 | Electrocardiogram Report ---
Test Reason : Blood Pressure : / mmHG Vent. Rate : 062 BPM Atrial Rate : 062 BPM P-R Int : 160 ms QRS Dur : 108 ms QT Int : 482 ms P-R-T Axes : 063 046 042 degrees QTc Int : 489 ms Poor data quality, interpretation may be adversely affected Normal sinus rhythm Low voltage QRS Incomplete right bundle branch block Nonspecific T wave abnormality Abnormal ECG No previous ECGs available Confirmed by Robb Mckenzie ([id number]) on 02/03/2022 9:07:06 PM Referred By: REFERRED SELF Confirmed By:Robb Mckenzie
[2022-02-04] MEDS: PIPERACILLIN/TAZOBACTAM 3.375 GM in DEXTROSE 5% 100 ML IV SCH ×2 (06:09→18:49)
--- NOTE | 2022-02-04 07:58 | Hospitalist Progress Note ---
Date of Service February 04, 2022 Assessment & Plan (1) TIAN (acute kidney injury): (2) Hematuria: (3) Elevated lactic acid level: Plan: Hematuria Patient presents with hematuria od 1 day In November patient seen in [place] ED, diagnosed with cystitis and hematuria, discharged on p.o. antibiotics On admission- lactate also elevated at 4.4 and creatinine elevated at 2.19 Per staff at [facility], poor appetite for 2 to 3 days Received IV fluids in ED, and started on IV Zosyn Continue IV Zosyn for now, repeat lactate 1.2 Urine culture -positive for Proteus mirabilis blood culture pending CT abdomen obtained 1. Moderate bladder wall thickening with adjacent stranding. This favors cystitis and could be correlated with urinalysis. Possible tiny bladder calculi. 2. No urinary calculi or hydronephrosis. Urology consulted, appreciate their input Hematuria likely secondary to UTI, outpatient follow-up Per RN, pink-tinged urine in the morning, and clear urine this afternoon (02/03) 02/04 hematuria seems resolved TIAN on CKD stage 3 Baseline creatinine seems to be 1.3-1.5 On admission creatinine 2.19 Likely prerenal, as staff at [facility] reports poor p.o. intake for past 2 to 3 days IV fluids Hold lisinopril Cr improved at 1.5 after IVF Continue with gentle hydration, as patient continues to have very poor p.o. intake Elevated troponin Elevation likely secondary to TIAN on CKD No chest pain reported by the patient or staff Repeat troponin essentially unchanged, monitor on telemetry for now History of CAD, hyperlipidemia -Continue Crestor, metoprolol, hold aspirin for now in the setting of hematuria -Hold lisinopril Dementia -Continue donepezil, sertraline DVT ppx: No chemical prophylaxis for DVT at this time, as patient presents with hematuria CODE STATUS: DNR per [facility] Admission and Anticipated Discharge Date Admission Date: February 02, 2022 Subjective Patient seen for follow-up of hematuria, history of dementia Patient cannot provide any meaningful history due to dementia Creatinine improved after IV fluids Urine culture positive for Proteus mirabilis Hematuria resolved Per RN, patient is able to take p.o. meds, and had a banana pudding this morning Also discussed with urology Update: changed Abx to PO and pt would not take it. Switched back to IV Review of Systems Review of Systems: All systems reviewed & are unremarkable except as noted in Subjective Physical Exam Physical Exam: Constitutional:L elderly F in NAD Eyes: PERRL, EOMI, conju nctivae normal, an icteric sclerae ENMT: external ear and n ose normal, oropha rynx normal Neck: supple Respiratory: normal respiratory effort, lungs justine ar to auscultation Cardiovascular:L RRR, no murmur, no edema Chest (Breasts): Chest: normal insp ection of chest Gastrointestinal ( Abdomen): normal bowel sound s, soft, nontender Musculoskeletal: moves extremities Skin: no rashes, warm an d dry Neurologic: PERRL, EOMI,moves extremities, poor insight d/t nabor ia Results & Data Results & Data ([facility]) Vital Signs (Past 12 Hours) Vital Signs Temp Pulse Pulse Resp BP Pulse Ox O2 Del Method 02/04/22 07:44 36.6 C 70 18 134/64 92 Room Air 02/03/22 23:12 48 L Laboratory Results 02/04/22 02/04/22 Range/Units 10:30 10:30 WBC 7.12 (4.8-10.8) K/ul RBC 4.26 (3.93-5.22) M/uL Hgb 12.8 (12.0-16.0) g/dl Hct 39.5 (34.1-44.9) % MCV 92.7 (80.0-100.0) fL MCH 30.0 (25.0-34.0) pg MCHC 32.4 (32.0-36.0) g/dL RDW Std Deviation 45.3 (36.4-46.3) fL RDW Coeff of Thelma 13.3 (11.5-14.5) % Plt Count 209 (130-400) K/uL MPV 10.6 (9.4-12.3) fL Sodium 139 (136-145) mmol/L Potassium 4.4 (3.5-5.1) mmol/L Chloride 109 H (98-107) mmol/L Carbon Dioxide 21 (21-32) mmol/L Anion Gap 9 (3-11) BUN 26 H (6-23) mg/dl Creatinine 1.55 H (0.6-1.2) mg/dl Est Cr Clr Drug Dosing 21.7 ml/min Est GFR ( Amer) 34.3 ml/min Est GFR (Non-Af Amer) 29.6 ml/min BUN/Creatinine Ratio 16.8 (10-20) Glucose 115 H (70-99(Fasting)) mg/dl Calcium 8.5 (8.5-10.1) mg/dl Phosphorus 2.6 (2.5-4.9) mg/dl Magnesium 1.6 L (1.7-2.4) mg/dl Medications Administered Current Inpatient Medications Donepezil HCl (Donepezil Hcl 10 Mg Tab) 10 mg PO DAILY [facility] Stop: 03/05/22 08:59 Last Admin: 02/03/22 12:58 Dose: Not Given Piperacillin Sod/Tazobactam (Sod 3.375 gm/ Dextrose) 115 mls @ 28.75 mls/hr IV Q8H [facility]; Protocol Stop: 02/13/22 21:59 Last Admin: 02/04/22 06:09 Dose: 28.8 mls/hr Metoprolol Succinate (Metoprolol Succ 25mg Ext Rel Tab) 12.5 mg PO DAILY [facility] Stop: 03/05/22 08:59 Last Admin: 02/03/22 12:58 Dose: Not Given Rosuvastatin Calcium (Rosuvastatin Calcium 10 Mg Tab) 10 mg PO DAILY [facility] Stop: 03/05/22 08:59 Last Admin: 02/03/22 12:58 Dose: Not Given Sertraline HCl (Sertraline Hcl 50 Mg Tablet) 25 mg PO DAILY [facility] Stop: 03/05/22 08:59 Last Admin: 02/03/22 12:59 Dose: Not Given (1) Hematuria Hematuria type: gross Qualified Code(s): R31.0 - Gross hematuria
[2022-02-04] MEDS: ROSUVASTATIN CALCIUM 10 MG TAB PO SCH (08:48)
[2022-02-04] MEDS: DONEPEZIL HCL 10 MG TAB PO SCH (08:49)
[2022-02-04] MEDS: SERTRALINE HCL 50 MG TABLET PO SCH (08:49)
[2022-02-04] MEDS: METOPROLOL SUCC 25MG EXT REL TAB PO SCH (08:50)
[2022-02-04 10:40] LABS: Hematocrit (blood only) 39.5 % (34.1-44.9); Hemoglobin 12.8 g/dl (12.0-16.0); Mean Corpuscular Hgb Conc 32.4 g/dL (32.0-36.0); Mean Corpuscular Volume 92.7 fL (80.0-100.0); Mean Platelet Volume 10.6 fL (9.4-12.3); Platelet Count 209 K/uL (130-400); RDW Coefficient of Variation 13.3 % (11.5-14.5); RDW Standard Deviation 45.3 fL (36.4-46.3); Red Blood Count 4.26 M/uL (3.93-5.22); White Blood Count 7.12 K/ul (4.8-10.8)
[2022-02-04 11:19] LABS: BUN Creatinine Ratio 16.8 (10-20); Calcium 8.5 mg/dl (8.5-10.1); Creatinine Clr Calc Pharmacy 21.7 ml/min; Est GFR (African American) 34.3 ml/min; Est GFR (Non-African American) 29.6 ml/min; Magnesium 1.6 mg/dl (1.7-2.4); Phosphorus 2.6 mg/dl (2.5-4.9); Potassium 4.4 mmol/L (3.5-5.1)
[2022-02-04] MEDS ORDERED: MAGNESIUM SULFATE / D5W 1 GM/100 ML BAG IV ONE (11:30)
[2022-02-04] MEDS: SODIUM CHLORIDE 0.9% 500 ML IV SCH (11:56)
[2022-02-04] MEDS ORDERED: AMOXICILLIN 500 MG CAP PO SCH (14:30)
[2022-02-04] MEDS: SODIUM CHLORIDE 0.9% 1000ML 1,000 ML IV SCH (22:02)
[2022-02-05] MEDS: PIPERACILLIN/TAZOBACTAM 3.375 GM in DEXTROSE 5% 100 ML IV SCH ×3 (02:01→17:53)
[2022-02-05] MEDS: SODIUM CHLORIDE 0.9% 500 ML IV SCH (06:52)
[2022-02-05 07:42] LABS: Hematocrit (blood only) 36.9 % (34.1-44.9); Hemoglobin 11.6 g/dl (12.0-16.0); Mean Corpuscular Hemoglobin 30.1 pg (25.0-34.0); Mean Corpuscular Hgb Conc 31.4 g/dL (32.0-36.0); Mean Corpuscular Volume 95.6 fL (80.0-100.0); Mean Platelet Volume 10.7 fL (9.4-12.3); Platelet Count 172 K/uL (130-400); RDW Coefficient of Variation 13.2 % (11.5-14.5); RDW Standard Deviation 46.4 fL (36.4-46.3); Red Blood Count 3.86 M/uL (3.93-5.22); White Blood Count 6.82 K/ul (4.8-10.8)
[2022-02-05 08:07] LABS: Calcium 7.9 mg/dl (8.5-10.1); Creatinine Clr Calc Pharmacy 24.7 ml/min; Est GFR (African American) 40.2 ml/min; Est GFR (Non-African American) 34.7 ml/min; Magnesium 1.6 mg/dl (1.7-2.4); Phosphorus 2.2 mg/dl (2.5-4.9); Potassium 3.8 mmol/L (3.5-5.1)
[2022-02-05] MEDS: METOPROLOL SUCC 25MG EXT REL TAB PO SCH (08:59)
[2022-02-05] MEDS: ROSUVASTATIN CALCIUM 10 MG TAB PO SCH (09:04)
[2022-02-05] MEDS: DONEPEZIL HCL 10 MG TAB PO SCH (09:05)
[2022-02-05] MEDS: SERTRALINE HCL 50 MG TABLET PO SCH (09:05)
[2022-02-05] MEDS: SODIUM CHLORIDE 0.9% 1000ML 1,000 ML IV SCH ×2 (10:42→22:01)
[2022-02-05] MEDS ORDERED: MAGNESIUM SULFATE / D5W 1 GM/100 ML BAG IV ONE (12:45)
--- NOTE | 2022-02-05 12:50 | Hospitalist Progress Note ---
Date of Service February 05, 2022 Assessment & Plan (1) TIAN (acute kidney injury): (2) Hematuria: (3) Elevated lactic acid level: Plan: Hematuria Patient presents with hematuria od 1 day In November patient seen in [place] ED, diagnosed with cystitis and hematuria, discharged on p.o. antibiotics On admission- lactate also elevated at 4.4 and creatinine elevated at 2.19 Per staff at [facility], poor appetite for 2 to 3 days Received IV fluids in ED, and started on IV Zosyn Continue IV Zosyn for now, repeat lactate 1.2 Urine culture -positive for Proteus mirabilis blood culture pending CT abdomen obtained 1. Moderate bladder wall thickening with adjacent stranding. This favors cystitis and could be correlated with urinalysis. Possible tiny bladder calculi. 2. No urinary calculi or hydronephrosis. Urology consulted, appreciate their input Hematuria likely secondary to UTI, outpatient follow-up Per RN, pink-tinged urine in the morning, and clear urine this afternoon (02/03) 02/04 hematuria seems resolved TIAN on CKD stage 3 Baseline creatinine seems to be 1.3-1.5 On admission creatinine 2.19 Likely prerenal, as staff at [facility] reports poor p.o. intake for past 2 to 3 days IV fluids Hold lisinopril Cr improved at 1.4 after IVF Continued with gentle hydration, as patient continues to have very poor p.o. intake Elevated troponin Elevation likely secondary to TIAN on CKD No chest pain reported by the patient or staff Repeat troponin essentially unchanged, monitor on telemetry for now History of CAD, hyperlipidemia -Continue Crestor, metoprolol, hold aspirin for now in the setting of hematuria -Hold lisinopril Dementia -Continue donepezil, sertraline DVT ppx: No chemical prophylaxis for DVT at this time, as patient presented with hematuria CODE STATUS: DNR per [facility] Admission and Anticipated Discharge Date Admission Date: February 02, 2022 Subjective Patient seen for follow-up of hematuria, history of dementia Patient cannot provide any meaningful history due to dementia Creatinine improved after IV fluids Urine culture positive for Proteus mirabilis Hematuria resolved Review of Systems Review of Systems: Unobtainable due to cognitive status Physical Exam Physical Exam: Constitutional:L elderly F in NAD Eyes: PERRL, EOMI, conju nctivae normal, an icteric sclerae ENMT: external ear and n ose normal, oropha rynx normal Neck: supple Respiratory: normal respiratory effort, lungs justine ar to auscultation Cardiovascular:L RRR, no murmur, no edema Chest (Breasts): Chest: normal insp ection of chest Gastrointestinal ( Abdomen): normal bowel sound s, soft, nontender Musculoskeletal: moves extremities Skin: no rashes, warm an d dry Neurologic: PERRL, EOMI,moves extremities, poor insight d/t nabor ia Results & Data Results & Data ([facility]) Vital Signs (Past 12 Hours) Vital Signs Temp Pulse Pulse Resp BP BP Pulse Ox 02/05/22 11:58 36.9 C 69 18 137/56 L 95 02/05/22 08:00 46 L 02/05/22 08:58 54 L 02/05/22 08:00 36.5 C 46 L 20 151/68 H 100 O2 Del Method 02/05/22 11:58 02/05/22 08:00 02/05/22 08:58 02/05/22 08:00 Room Air Laboratory Results 02/05/22 02/05/22 Range/Units 06:35 06:35 WBC 6.82 (4.8-10.8) K/ul RBC 3.86 L (3.93-5.22) M/uL Hgb 11.6 L (12.0-16.0) g/dl Hct 36.9 (34.1-44.9) % MCV 95.6 (80.0-100.0) fL MCH 30.1 (25.0-34.0) pg MCHC 31.4 L (32.0-36.0) g/dL RDW Std Deviation 46.4 H (36.4-46.3) fL RDW Coeff of Thelma 13.2 (11.5-14.5) % Plt Count 172 (130-400) K/uL MPV 10.7 (9.4-12.3) fL Sodium 139 (136-145) mmol/L Potassium 3.8 (3.5-5.1) mmol/L Chloride 110 H (98-107) mmol/L Carbon Dioxide 24 (21-32) mmol/L Anion Gap 5 (3-11) BUN 19 (6-23) mg/dl Creatinine 1.36 H (0.6-1.2) mg/dl Est Cr Clr Drug Dosing 24.7 ml/min Est GFR ( Amer) 40.2 ml/min Est GFR (Non-Af Amer) 34.7 ml/min BUN/Creatinine Ratio 14.0 (10-20) Glucose 87 (70-99(Fasting)) mg/dl Calcium 7.9 L (8.5-10.1) mg/dl Phosphorus 2.2 L (2.5-4.9) mg/dl Magnesium 1.6 L (1.7-2.4) mg/dl Medications Administered Current Inpatient Medications Amoxicillin (Amoxicillin 500 Mg Cap) 500 mg PO BID [facility]; Protocol Stop: 02/14/22 14:29 Last Admin: 02/04/22 17:06 Dose: Not Given Donepezil HCl (Donepezil Hcl 10 Mg Tab) 10 mg PO DAILY [facility] Stop: 03/05/22 08:59 Last Admin: 02/05/22 09:05 Dose: 10 mg Piperacillin Sod/Tazobactam (Sod 3.375 gm/ Dextrose) 115 mls @ 28.75 mls/hr IV Q8H [facility]; Protocol Stop: 02/14/22 17:59 Last Admin: 02/05/22 10:07 Dose: 28.8 mls/hr Sodium Chloride (Nss 1000ml) 1,000 mls @ 80 mls/hr IV .[id number] [facility] Stop: 03/06/22 11:44 Last Admin: 02/05/22 10:42 Dose: 80 mls/hr Magnesium Sulfate/Dextrose (Magnesium Sulfate / D5w) 1 gm in 100 mls @ 50 mls/hr IV ONE ONE Stop: 02/05/22 14:44 Metoprolol Succinate (Metoprolol Succ 25mg Ext Rel Tab) 12.5 mg PO DAILY [facility] Stop: 03/05/22 08:59 Last Admin: 02/05/22 08:59 Dose: Not Given Rosuvastatin Calcium (Rosuvastatin Calcium 10 Mg Tab) 10 mg PO DAILY [facility] Stop: 03/05/22 08:59 Last Admin: 02/05/22 09:04 Dose: 10 mg Sertraline HCl (Sertraline Hcl 50 Mg Tablet) 25 mg PO DAILY [facility] Stop: 03/05/22 08:59 Last Admin: 02/05/22 09:05 Dose: 25 mg (1) Hematuria Hematuria type: gross Qualified Code(s): R31.0 - Gross hematuria
[2022-02-06] MEDS: PIPERACILLIN/TAZOBACTAM 3.375 GM in DEXTROSE 5% 100 ML IV SCH ×3 (01:19→17:55)
[2022-02-06 06:28] LABS: Creatinine Clr Calc Pharmacy 28.5 ml/min; Est GFR (African American) 47.7 ml/min; Est GFR (Non-African American) 41.1 ml/min
--- NOTE | 2022-02-06 09:05 | Hospitalist Progress Note ---
Date of Service February 06, 2022 Assessment & Plan (1) TIAN (acute kidney injury): (2) Hematuria: (3) Elevated lactic acid level: Plan: Hematuria Patient presents with hematuria od 1 day In November patient seen in [place] [facility], diagnosed with cystitis and hematuria, discharged on p.o. antibiotics On admission- lactate also elevated at 4.4 and creatinine elevated at 2.19 Per staff at [facility], poor appetite for 2 to 3 days Received IV fluids in ED, and started on IV Zosyn Continue IV Zosyn for now, repeat lactate 1.2 Urine culture -positive for Proteus mirabilis blood culture pending CT abdomen obtained 1. Moderate bladder wall thickening with adjacent stranding. This favors cystitis and could be correlated with urinalysis. Possible tiny bladder calculi. 2. No urinary calculi or hydronephrosis. Urology consulted, appreciate their input Hematuria likely secondary to UTI, outpatient follow-up Per RN, pink-tinged urine in the morning, and clear urine this afternoon (02/03) 02/04 hematuria seems resolved NSVT - 02/06 - notified of 6 beat NSVT, patient asymptomatic BMP and mag level obtained Magnesium 1.6, will replete, goal magnesium over 2 TIAN on CKD stage 3 - resolved Baseline creatinine seems to be 1.3-1.5 On admission creatinine 2.19 Likely prerenal, as staff at [facility] reports poor p.o. intake for past 2 to 3 days IV fluids Hold lisinopril Cr improved at 1.2 after IVF Elevated troponin Elevation likely secondary to TIAN on CKD No chest pain reported by the patient or staff Repeat troponin essentially unchanged, monitor on telemetry for now History of CAD, hyperlipidemia -Continue Crestor, metoprolol -aspirin was on hold for hematuria - will resume now -Hold lisinopril Dementia -Continue donepezil, sertraline DVT ppx: No chemical prophylaxis for DVT at this time, as patient presented with hematuria CODE STATUS: DNR per [facility] Admission and Anticipated Discharge Date Admission Date: February 02, 2022 Subjective Patient seen for follow-up of hematuria, history of dementia This morning I was notified, patient had 6 beat NSVT. Patient in bed resting, denies any symptoms. Appears comfortable. Patient cannot provide any meaningful history due to dementia Creatinine improved after IV fluids Urine culture positive for Proteus mirabilis Hematuria resolved Review of Systems Review of Systems: Unobtainable due to cognitive status Physical Exam Physical Exam: Constitutional:L elderly F in NAD Eyes: PERRL, EOMI, conju nctivae normal, an icteric sclerae ENMT: external ear and n ose normal, oropha rynx normal Neck: supple Respiratory: normal respiratory effort, lungs justine ar to auscultation Cardiovascular:L RRR, no murmur, no edema Chest (Breasts): Chest: normal insp ection of chest Gastrointestinal ( Abdomen): normal bowel sound s, soft, nontender Musculoskeletal: moves extremities Skin: no rashes, warm an d dry Neurologic: PERRL, EOMI,moves extremities, poor insight d/t nabor ia Results & Data Results & Data ([facility]) Vital Signs (Past 12 Hours) Vital Signs Temp Pulse Pulse Resp BP Pulse Ox O2 Del Method 02/06/22 08:16 36.5 C 81 16 149/55 H 93 Room Air 02/06/22 07:31 50 L 02/06/22 03:29 70 02/05/22 22:50 36.2 C L 51 L 18 114/72 92 Room Air Laboratory Results 02/06/22 Range/Units 05:40 Creatinine 1.18 (0.6-1.2) mg/dl Est Cr Clr Drug Dosing 28.5 ml/min Est GFR ( Amer) 47.7 ml/min Est GFR (Non-Af Amer) 41.1 ml/min Medications Administered Current Inpatient Medications Amoxicillin (Amoxicillin 500 Mg Cap) 500 mg PO BID [facility]; Protocol Stop: 02/14/22 14:29 Last Admin: 02/04/22 17:06 Dose: Not Given Donepezil HCl (Donepezil Hcl 10 Mg Tab) 10 mg PO DAILY [facility] Stop: 03/05/22 08:59 Last Admin: 02/05/22 09:05 Dose: 10 mg Piperacillin Sod/Tazobactam (Sod 3.375 gm/ Dextrose) 115 mls @ 28.75 mls/hr IV Q8H [facility]; Protocol Stop: 02/14/22 17:59 Last Infusion: 02/06/22 05:19 Dose: Infused Metoprolol Succinate (Metoprolol Succ 25mg Ext Rel Tab) 12.5 mg PO DAILY [facility] Stop: 03/05/22 08:59 Last Admin: 02/05/22 08:59 Dose: Not Given Rosuvastatin Calcium (Rosuvastatin Calcium 10 Mg Tab) 10 mg PO DAILY [facility] Stop: 03/05/22 08:59 Last Admin: 02/05/22 09:04 Dose: 10 mg Sertraline HCl (Sertraline Hcl 50 Mg Tablet) 25 mg PO DAILY [facility] Stop: 03/05/22 08:59 Last Admin: 02/05/22 09:05 Dose: 25 mg (1) Hematuria Hematuria type: gross Qualified Code(s): R31.0 - Gross hematuria
[2022-02-06 09:59] LABS: BUN Creatinine Ratio 10.6 (10-20); Calcium 7.6 mg/dl (8.5-10.1); Creatinine Clr Calc Pharmacy 27.3 ml/min; Est GFR (African American) 45.4 ml/min; Est GFR (Non-African American) 39.1 ml/min; Magnesium 1.6 mg/dl (1.7-2.4); Potassium 3.9 mmol/L (3.5-5.1)
[2022-02-06] MEDS: SERTRALINE HCL 50 MG TABLET PO SCH (10:13)
[2022-02-06] MEDS: ROSUVASTATIN CALCIUM 10 MG TAB PO SCH (10:13)
[2022-02-06] MEDS: METOPROLOL SUCC 25MG EXT REL TAB PO SCH (10:14)
[2022-02-06] MEDS: DONEPEZIL HCL 10 MG TAB PO SCH (10:15)
[2022-02-06] MEDS ORDERED: MAGNESIUM SULFATE / D5W 1 GM/100 ML BAG IV ONE (11:32)
[2022-02-06] MEDS: MAGNESIUM OXIDE 400 MG TAB PO SCH (12:09)
[2022-02-06] MEDS: ASPIRIN 81 MG ECTAB PO SCH (12:09)
[2022-02-07] MEDS: PIPERACILLIN/TAZOBACTAM 3.375 GM in DEXTROSE 5% 100 ML IV SCH ×2 (02:11→10:53)
[2022-02-07] MEDS: ASPIRIN 81 MG ECTAB PO SCH (08:35)
[2022-02-07] MEDS: MAGNESIUM OXIDE 400 MG TAB PO SCH (08:35)
[2022-02-07] MEDS: METOPROLOL SUCC 25MG EXT REL TAB PO SCH (08:36)
[2022-02-07] MEDS: ROSUVASTATIN CALCIUM 10 MG TAB PO SCH (08:37)
[2022-02-07] MEDS: DONEPEZIL HCL 10 MG TAB PO SCH (08:37)
[2022-02-07] MEDS: SERTRALINE HCL 50 MG TABLET PO SCH (08:37)
--- NOTE | 2022-02-07 08:43 | Hospitalist Progress Note ---
Date of Service February 07, 2022 Assessment & Plan (1) TIAN (acute kidney injury): (2) Hematuria: (3) Elevated lactic acid level: Plan: Hematuria Patient presents with hematuria od 1 day In November patient seen in [place] ED, diagnosed with cystitis and hematuria, discharged on p.o. antibiotics On admission- lactate also elevated at 4.4 and creatinine elevated at 2.19 Per staff at [facility], poor appetite for 2 to 3 days Received IV fluids in ED, and started on IV Zosyn Continue IV Zosyn for now, repeat lactate 1.2 Urine culture -positive for Proteus mirabilis blood culture NGTD, follow final results CT abdomen obtained 1. Moderate bladder wall thickening with adjacent stranding. This favors cystitis and could be correlated with urinalysis. Possible tiny bladder calculi. 2. No urinary calculi or hydronephrosis. Urology consulted, appreciate their input Hematuria likely secondary to UTI, outpatient follow-up Per RN, pink-tinged urine in the morning, and clear urine this afternoon (02/03) 02/04 hematuria seems resolved NSVT - 02/06 - notified of 6 beat NSVT, patient asymptomatic BMP and mag level obtained Magnesium 1.6, will replete, goal magnesium over 2 TIAN on CKD stage 3 - resolved Baseline creatinine seems to be 1.3-1.5 On admission creatinine 2.19 Likely prerenal, as staff at [facility] reports poor p.o. intake for past 2 to 3 days IV fluids Hold lisinopril Cr improved at 1.2 after IVF Would hold lisinopril for next few days, check with PCP if/when to resume Elevated troponin Elevation likely secondary to TIAN on CKD No chest pain reported by the patient or staff Repeat troponin essentially unchanged, monitor on telemetry for now History of CAD, hyperlipidemia -Continue Crestor, metoprolol -aspirin was on hold for hematuria - will resume now -Hold lisinopril Dementia -Continue donepezil, sertraline DVT ppx: No chemical prophylaxis for DVT at this time, as patient presented with hematuria CODE STATUS: DNR per [facility] Admission and Anticipated Discharge Date Admission Date: February 02, 2022 Subjective Patient seen for follow-up of hematuria, UTI. TIAN, history of dementia Patient cannot provide any meaningful history due to dementia Creatinine improved after IV fluids Urine culture positive for Proteus mirabilis Hematuria resolved She is lying comfortably in bed in no acute distress, denies any complaints. Denies any chest pain shortness of breath abdominal pain. Says mostly "no" to everything. Not able to provide any meaningful history. Review of Systems Review of Systems: All systems reviewed & are unremarkable except as noted in Subjective and Unobtainable due to cognitive status Physical Exam Physical Exam: Constitutional:L elderly F in NAD Eyes: PERRL, EOMI, conju nctivae normal, an icteric sclerae ENMT: external ear and n ose normal, oropha rynx normal Neck: supple Respiratory: normal respiratory effort, lungs justine ar to auscultation Cardiovascular:L RRR, no murmur, no edema Chest (Breasts): Chest: normal insp ection of chest Gastrointestinal ( Abdomen): normal bowel sound s, soft, nontender Musculoskeletal: moves extremities Skin: no rashes, warm an d dry Neurologic: PERRL, EOMI,moves extremities, poor insight d/t nabor ia Results & Data Results & Data ([facility]) Vital Signs (Past 12 Hours) Vital Signs Temp Pulse Pulse Resp BP BP Pulse Ox 02/07/22 07:53 36.4 C L 51 L 16 125/47 L 93 02/06/22 22:23 56 L 18 146/75 H 02/06/22 22:53 58 L 02/06/22 20:43 O2 Del Method 02/07/22 07:53 Room Air 02/06/22 22:23 02/06/22 22:53 02/06/22 20:43 Room Air Laboratory Results 02/06/22 Range/Units 05:44 Sodium 141 (136-145) mmol/L Potassium 3.9 (3.5-5.1) mmol/L Chloride 114 H (98-107) mmol/L Carbon Dioxide 22 (21-32) mmol/L Anion Gap 5 (3-11) BUN 13 (6-23) mg/dl Creatinine 1.23 H (0.6-1.2) mg/dl Est Cr Clr Drug Dosing 27.3 ml/min Est GFR ( Amer) 45.4 ml/min Est GFR (Non-Af Amer) 39.1 ml/min BUN/Creatinine Ratio 10.6 (10-20) Glucose 84 (70-99(Fasting)) mg/dl Calcium 7.6 L (8.5-10.1) mg/dl Phosphorus 2.0 L (2.5-4.9) mg/dl Magnesium 1.6 L (1.7-2.4) mg/dl Medications Administered Current Inpatient Medications Amoxicillin (Amoxicillin 500 Mg Cap) 500 mg PO BID [facility]; Protocol Stop: 02/14/22 14:29 Last Admin: 02/04/22 17:06 Dose: Not Given Aspirin (Aspirin 81 Mg Ectab) 81 mg PO DAILY [facility] Stop: 03/08/22 11:44 Last Admin: 02/07/22 08:35 Dose: 81 mg Donepezil HCl (Donepezil Hcl 10 Mg Tab) 10 mg PO DAILY [facility] Stop: 03/05/22 08:59 Last Admin: 02/07/22 08:37 Dose: 10 mg Piperacillin Sod/Tazobactam (Sod 3.375 gm/ Dextrose) 115 mls @ 28.75 mls/hr IV Q8H [facility]; Protocol Stop: 02/14/22 17:59 Last Infusion: 02/07/22 06:20 Dose: Infused Magnesium Oxide (Magnesium Oxide 400 Mg Tab) 400 mg PO QAM [facility] Stop: 03/08/22 11:44 Last Admin: 02/07/22 08:35 Dose: 400 mg Metoprolol Succinate (Metoprolol Succ 25mg Ext Rel Tab) 12.5 mg PO DAILY [facility] Stop: 03/05/22 08:59 Last Admin: 02/07/22 08:36 Dose: Not Given Rosuvastatin Calcium (Rosuvastatin Calcium 10 Mg Tab) 10 mg PO DAILY [facility] Stop: 03/05/22 08:59 Last Admin: 02/07/22 08:37 Dose: 10 mg Sertraline HCl (Sertraline Hcl 50 Mg Tablet) 25 mg PO DAILY [facility] Stop: 03/05/22 08:59 Last Admin: 02/07/22 08:37 Dose: 25 mg (1) Hematuria Hematuria type: gross Qualified Code(s): R31.0 - Gross hematuria
--- NOTE | 2022-02-07 11:13 | Discharge Summary ---
Date of Service February 07, 2022 Admission HPI Per Admitting Provider 86-year-old female, with history of dementia, CKD stage III, hypertension, CAD, hyperlipidemia, who presents from [facility], with hematuria. Per ED provider/[facility] staff, patient started to reside there beginning of December, for past few days she was not acting herself, and had very poor appetite for past 2 to 3 days. Overnight she developed hematuria. Due to dementia, patient is not able to provide much history. Per chart review, patient presented in November in [place] ED, with acute cystitis and hematuria as well, was treated at that time with cephalexin. Today on her evaluation in the ED, UA significant for gross hematuria, elevated lactate at 4.4, troponin elevated at 91.6. Creatinine elevated at 2.19. No complaints of chest pain. EKG reviewed, showing normal sinus rhythm, and incomplete right bundle branch block. CT abdomen pelvis also obtained for further evaluation. Blood cultures and urine culture obtained and pending. On my evaluation, patient does not provide any history. She is however awake, and in no distress. She says "hi" several times, but on my physical exam, she says "ouch" or "no". Very difficult to obtain any significant information from the patient herself. Admission Exam Per Admitting Provider Constitutional: WD/WN, vitals as above Eyes: PERRL, conjunctivae normal, anicteric sclerae ENMT: external ear and nose normal, oropharynx normal Neck: trachea midline, no thyromegaly Respiratory: normal respiratory effort, lungs clear to auscultation Cardiovascular: RRR, no murmur, no edema Chest (Breasts): Chest: normal inspection of chest Gastrointestinal (Abdomen): normal bowel sounds, soft, nontender, no hep atosplenomegaly (says "ouch" when palpating abdomen, but then says "ouch" on any part of PE) Musculoskeletal: no cyanosis or clubbing, extremities motor strength 5/5 B Skin: no rashes, warm and dry Neurologic: PERRL, EOMI, accommodation nl, no face palsy, no dysarthria Principal Diagnosis Hematuria secondary to UTI, TIAN Poor oral intake Dementia Discharge Exam Constitutional: elderly F in NAD Eyes: PERRL, EOMI, conjunctivae normal, anicteric sclerae ENMT: external ear and nose normal, oropharynx normal Neck: supple Respiratory: normal respiratory effort, lungs clear to auscultation Cardiovascular: RRR, no murmur, no edema Chest (Breasts): Chest: normal inspection of chest Gastrointestinal (Abdomen): normal bowel sounds, soft, nontender Musculoskeletal: moves extremities Skin: no rashes, warm and dry Neurologic: PERRL, EOMI,moves extremities, poor insight d/t dementia Discharge Data Allergies Allergy/AdvReac Type Severity Reaction Status Date / Time methadone Allergy Verified 12/08/21 15:26 propoxyphene Allergy Verified 12/08/21 15:26 Consultations 02/02/22 17:30 ED Decision to Admit Stat 02/03/22 08:58 Consult Urology Routine Ordered Studies 02/02/22 13:54 CT abd pelvis wo con Stat FINDINGS: This exam is compromised given difficulty positioning. A moderate sized hiatal hernia with partially intrathoracic stomach is noted. No pneumatosis, free air or portal venous gas is present. No renal or ureteral calculi are present. There are possible tiny bladder calculi. Note is made of moderate bladder wall thickening with adjacent stranding. There is trace gas within the bladder. There is no hydronephrosis. Water attenuation left renal lesion probably reflects a cyst. Moderate renal atrophy is noted. Evaluation of the remainder of the abdomen and pelvis is suboptimal on this unenhanced exam. Note is made of cardiomegaly with extensive coronary artery calcification. Unenhanced images of liver, spleen, adrenal glands and pancreas are unremarkable. There is no evidence for a bowel obstruction. Colonic diverticulosis is noted. There is no evidence for acute diverticulitis. There is no lymphadenopathy. No acute fracture within visualized skeletal structures. IVC filter is in place. IMPRESSION: 1. Moderate bladder wall thickening with adjacent stranding. This favors cystitis and could be correlated with urinalysis. Possible tiny bladder calculi. 2. No urinary calculi or hydronephrosis. 3. No bowel obstruction. Colonic diverticulosis without evidence for acute diverticulitis. 4. Hiatal hernia with partially intrathoracic stomach. 5. Exam compromised given difficulty positioning. Hospital Course (1) TIAN (acute kidney injury): (2) Hematuria: (3) Elevated lactic acid level: Hematuria Patient presents with hematuria od 1 day In November patient seen in [place] ED, diagnosed with cystitis and hematuria, discharged on p.o. antibiotics On admission- lactate also elevated at 4.4 and creatinine elevated at 2.19 Per staff at [facility], poor appetite for 2 to 3 days Received IV fluids in ED, and started on IV Zosyn Continue IV Zosyn for now, repeat lactate 1.2 Urine culture -positive for Proteus mirabilis blood culture NGTD, follow final results CT abdomen obtained 1. Moderate bladder wall thickening with adjacent stranding. This favors cystitis and could be correlated with urinalysis. Possible tiny bladder calculi. 2. No urinary calculi or hydronephrosis. Urology consulted, appreciate their input Hematuria likely secondary to UTI, outpatient follow-up Per RN, pink-tinged urine in the morning, and clear urine this afternoon (02/03) 02/04 hematuria seems resolved NSVT - 02/06 - notified of 6 beat NSVT, patient asymptomatic BMP and mag level obtained Magnesium 1.6, will replete, goal magnesium over 2 TIAN on CKD stage 3 - resolved Baseline creatinine seems to be 1.3-1.5 On admission creatinine 2.19 Likely prerenal, as staff at [facility] reports poor p.o. intake for past 2 to 3 days IV fluids Hold lisinopril Cr improved at 1.2 after IVF Would hold lisinopril for next few days, check with PCP if/when to resume Elevated troponin Elevation likely secondary to TIAN on CKD No chest pain reported by the patient or staff Repeat troponin essentially unchanged, monitor on telemetry for now History of CAD, hyperlipidemia -Continue Crestor, metoprolol -aspirin was on hold for hematuria - will resume now -Hold lisinopril Dementia -Continue donepezil, sertraline Total Time Total Time Spent Total Time Spent (In Minutes): 40 Discharge Plan Discharge Items Patient Disposition: Transfer [facility] Reason For Visit: HEMATURIA Discharge Diagnosis: Hematuria secondary to UTI, TIAN Poor oral intake Dementia Activity: Per Instructions section Non-emergency contact: Primary Care Provider Call non-emergency contact if: you have any medication questions and your symptoms worsen Follow-up/Referrals: Adis Fritz DO [Primary Care Provider] - Diet: Regular Diet Texture: Easy to Chew Addtl Attending Provider Instructions: Follow-up with your primary care physician within the next few days. Finish antibiotic treatment for UTI. You should have help with feeding, and you should be encouraged to drink more fluids. Urology was also consulted, you may follow-up with them in their clinic. For next few days I would recommend to hold lisinopril, discuss further with your primary care physician if/when you should restart this medication. Pending Studies at Discharge: No Stand-Alone Forms: My [facility] Skilled Items Patient informed of condition?: Yes DNR: Yes Discharge Level of Care: Skilled Communicable Disease: No Discharge Prognosis: Stable Lines: None Urinary Catheter: No Medications and DC Order Prescriptions: New amoxicillin 500 mg Capsule 500 mg PO BID Qty: 3 0RF Continued cholecalciferol (vitamin D3) 25 mcg (1,000 unit) tablet 1,000 unit PO DAILY Qty: 30 0RF sennosides 8.6 mg capsule 8.6 mg PO BID Qty: 60 11RF donepezil 10 mg tablet 10 mg PO DAILY Qty: 90 0RF rosuvastatin 10 mg tablet 10 mg PO DAILY Qty: 90 3RF aspirin 81 mg tablet,delayed release (DR/EC) 81 mg PO DAILY Qty: 90 1RF magnesium oxide 400 mg magnesium capsule 400 mg PO DAILY Qty: 30 0RF polyethylene glycol 3350 17 gram/dose powder 17 g PO DAILY Qty: 510 5RF lisinopril 5 mg tablet 5 mg PO DAILY Qty: 30 5RF ferrous sulfate 325 mg (65 mg iron) tablet 325 mg PO DAILY Qty: 30 sertraline 25 mg tablet 25 mg PO DAILY metoprolol succinate 25 mg tablet extended release 24 hr 12.5 mg PO DAILY Discharge Orders: Discharge Order (Routine); Ordered 02/07/22 Ordered By: Eldon Yost Admission Data Admit Date/Time: 02/02/22 18:56 Attending Provider: Eldon Yost Admit Provider: Eldon Yost Primary Care Provider: Adis Fritz Other Providers: Errol Arreola ; Kael Bowers
== END 2022-02-07 15:33 | disposition home or self-care (01) | DRG 683 ==
LOC: ED 13:25 → EDINP 18:56 → 2N 02-03 14:26
DX: R74.02 Elevation of levels of lactic acid dehydrogenase [LDH]; E78.5 Hyperlipidemia, unspecified; Z79.82 Long term (current) use of aspirin; B96.4 Proteus (mirabilis) (morganii) as the cause of diseases classified elsewhere; Z66 Do not resuscitate; N17.8 Other acute kidney failure; I12.9 Hypertensive chronic kidney disease with stage 1 through stage 4 chronic kidney disease, or unspecified chronic kidney disease; I47.2 Ventricular tachycardia; R31.0 Gross hematuria; M81.0 Age-related osteoporosis without current pathological fracture; N18.30 Chronic kidney disease, stage 3 unspecified; N39.0 Urinary tract infection, site not specified; R77.8 Other specified abnormalities of plasma proteins; F03.90 Unspecified dementia, unspecified severity, without behavioral disturbance, psychotic disturbance, mood disturbance, and anxiety; Z87.440 Personal history of urinary (tract) infections; Z79.899 Other long term (current) drug therapy; I25.10 Atherosclerotic heart disease of native coronary artery without angina pectoris

== ENCOUNTER 2022-05-01 09:21 | Inpatient (IN) ==
[2022-05-01] MEDS ORDERED: SODIUM CHLORIDE 0.9% 500 ML IV STA (09:36)
--- NOTE | 2022-05-01 09:41 | Emergency Department Note ---
Impression & Plan TIAN (acute kidney injury), Acute UTI, Diarrhea, Acute pancreatitis ED Provider Note NAME: GUERITA TREVINO AGE: 87 SEX: F : 1935 ARRIVES VIA: Ambulance INFORMANT: [nursing, ems] ED PROVIDER(S): [Gomez Barksdale MD] CHIEF COMPLAINT: Vomiting and diarrhea HISTORY OF PRESENT ILLNESS: The patient is an 87-year-old female who presents with vomiting and diarrhea. She was found to be more lethargic today and sent for evaluation. There has been no reported fever, no reported blood in the stool. The patient arrives alone, no family at bedside. She has severe dementia and can provide no further history. As per nursing staff, the patient's pelvic area was covered in dried stool. Given the dementia, no further history obtainable. Of note, our nursing staff did contact her care center, she is a DNR. REVIEW OF SYSTEMS: Unobtainable given the mental state PMHx/PSHx: See Below SOCIAL HISTORY: See Below. PHYSICAL EXAM: GENERAL: Patient is in no acute distress. HEENT: No acute trauma, normocephalic atraumatic, mucous membranes dry, no nasal congestion, no scleral icterus. NECK: No stridor, no adenopathy, no meningismus, trachea is midline. LUNGS: Clear to auscultation bilaterally when listening anterior, no wheeze, no rhonchi, breath sounds equal. HEART: Without murmurs gallops or rubs, regular rate and rhythm. ABDOMEN: Soft, seems diffusely tender however, the patient does complain of pain when touched anywhere about her body. EXTREMITIES: No cyanosis, mild to moderate bilateral pedal edema, worse on the left. No extremity deformities. NEUROLOGIC: Awake, says ouch to every touch, no acute motor or sensory deficits, no focal weakness. SKIN: No rash, no jaundice, no diaphoresis. DIFFERENTIAL DIAGNOSIS: Appendicitis, colitis, C. difficile, viral or bacterial intestinal infection, diverticulitis, UTI, obstruction, mesenteric ischemia, aortic pathology, inflammatory bowel disease, renal colic, PUD, pancreatitis, biliary pathology, hernia, volvulus, constipation, as well as other pathologies. EMERGENCY DEPARTMENT COURSE/PROCEDURES: MEDICAL DECISION MAKING: There is no leukocytosis or concerning anemia. There is a normal platelet count. Potassium is slightly high at 5.7. Sodium slightly low at 133. There is acute kidney injury with a creatinine of 3.09. No concerning liver enzyme elevation. Lipase was elevated consistent with a mild pancreatitis. Urinalysis did suggest infection. Chest film did not show pneumonia or CHF. Abdominal and pelvis CT show potential duodenitis and even pancreatitis. No bowel obstruction, no acute surgical process by CT imaging. COVID test returned negative. On exam, the patient appeared dehydrated. She was not febrile. The patient received IV saline, 1.5 L. She was given IV ceftriaxone as antibiotic coverage. The patient presents with reported diarrhea and vomiting. She was not dehydrated clinically and appears to have acute kidney injury by laboratory work-up. There is concern for some duodenitis and pancreatitis by CT imaging. She has a UTI. Hospitalization is warranted. I spoke with case management, the on-call hospitalist has been consulted. Past Med/Surg History Medical History CAD (coronary artery disease) Chronic kidney disease Dementia Depression HTN (hypertension) Hypercholesterolemia Osteoporosis Surgical History H/O total hysterectomy History of cholecystectomy Family History Mother Asthma Diabetes Heart disease Social History Smoking Status: Unknown if ever smoked Hx Alcohol Use: No Hx Substance Use: No Preferred Language: Trinidadian Communication Ability: Impaired Sales And Service Representative Required: No Beliefs That Will Affect Care: None marital status: / Current Living Situation: [facility] Current Living Situation Comment: [facility] current occupational status: retired Feels Safe at Home: Yes Dental Care, Regularly: No Assistive Devices: Wheelchair Allergies Allergies Allergy/AdvReac Type Severity Reaction Status Date / Time methadone Allergy Verified 12/08/21 15:26 propoxyphene Allergy Verified 12/08/21 15:26 Home Meds Home Medications Medication Instructions Recorded Confirmed ferrous sulfate 325 mg (65 mg 325 mg PO DAILY #30 tabs 12/31/18 05/01/22 iron) tablet metoprolol succinate 25 mg 12.5 mg PO DAILY 02/02/22 02/02/22 tablet,extended release 24 hr sertraline 25 mg tablet 25 mg PO DAILY 02/02/22 05/01/22 Oyster Shell Calcium 500 500 mg PO 1XD 05/01/22 05/01/22 multivitamin 05/01/22 polyethylene glycol 3350 17 17 g PO PRN Constipation 05/01/22 gram/dose oral powder Previous Rx's Medication Instructions Recorded cholecalciferol (vitamin D3) 25 1,000 unit PO DAILY #30 tabs 05/24/21 mcg (1,000 unit) tablet sennosides 8.6 mg capsule 8.6 mg PO BID #60 caps 05/25/21 donepezil 10 mg tablet 10 mg PO DAILY #90 tabs 05/27/21 rosuvastatin 10 mg tablet 10 mg PO DAILY #90 tabs 06/21/21 aspirin 81 mg tablet,delayed 81 mg PO DAILY #90 tabs 06/24/21 release magnesium oxide 400 mg PO DAILY #30 caps 06/24/21 lisinopril 5 mg tablet 5 mg PO DAILY #30 tabs 12/08/21 amoxicillin 500 mg capsule 500 mg PO BID #3 caps 02/07/22 Results & Data (ED) Vital Signs Vital Signs - 24 hr 05/01/22 09:33 05/01/22 09:51 05/01/22 10:00 Temperature 36.4 C L Temperature Source Rectal Pulse Rate 79 81 80 Pulse Rate [Apical] Pulse Rhythm Regular Pulse Strength Normal Respiratory Rate 30 H 26 H 20 Respiratory Effort / Characteristics Non-Labored Spontaneous Respiratory Depth Normal Respiratory Pattern Regular Blood Pressure 124/61 Blood Pressure [Left Arm] Blood Pressure Mean 82 Blood Pressure Mean [Left Arm] Pulse Oximetry 95 Oxygen Delivery Method Room Air Sepsis Recent Fever Within 48 Hours No Sepsis New/Unexplained Change in Mental Status N/A Sepsis Action Taken by Nursing No Action Required 05/01/22 11:12 Temperature Temperature Source Pulse Rate Pulse Rate [Apical] 62 Pulse Rhythm Pulse Strength Respiratory Rate 16 Respiratory Effort / Characteristics Respiratory Depth Respiratory Pattern Blood Pressure Blood Pressure [Left Arm] 124/61 Blood Pressure Mean Blood Pressure Mean [Left Arm] 82 Pulse Oximetry 100 Oxygen Delivery Method Room Air Sepsis Recent Fever Within 48 Hours Sepsis New/Unexplained Change in Mental Status Sepsis Action Taken by [facility] Medications Current Medication List: was personally reviewed by me Laboratory Data Attestation: I reviewed the patient's lab results. Result diagrams: 05/01/22 10:00 05/01/22 14:32 Lab Results 05/01/22 05/01/22 05/01/22 Range/Units 10:00 10:00 11:00 WBC 7.79 (4.8-10.8) K/ul RBC 4.78 (3.93-5.22) M/uL Hgb 14.9 (12.0-16.0) g/dl Hct 45.2 H (34.1-44.9) % MCV 94.6 (80.0-100.0) fL MCH 31.2 (25.0-34.0) pg MCHC 33.0 (32.0-36.0) g/dL RDW Std Deviation 45.0 (36.4-46.3) fL RDW Coeff of Thelma 13.0 (11.5-14.5) % Plt Count 243 (130-400) K/uL MPV 10.3 (9.4-12.3) fL Immature Gran % (Auto) 0.6 % Neut % (Auto) 69.7 % Lymph % (Auto) 19.9 % King % (Auto) 9.0 % Eos % (Auto) 0.5 % Baso % (Auto) 0.3 % Neut # (Auto) 5.43 (1.4-6.5) K/uL Lymph # (Auto) 1.55 (1.2-3.4) K/uL King # (Auto) 0.70 (0.24-0.82) K/uL Eos # (Auto) 0.04 (0-0.50) K/uL Baso # (Auto) 0.02 (0-0.2) K/uL Immature Gran # (Auto) 0.05 H (0.00-0.02) K/uL Sodium 133 L (136-145) mmol/L Potassium 5.7 H (3.5-5.1) mmol/L Chloride 100 (98-107) mmol/L Carbon Dioxide 22 (21-32) mmol/L Anion Gap 11 (3-11) BUN 67 H (6-23) mg/dl Creatinine 3.09 H (0.6-1.2) mg/dl Est Cr Clr Drug Dosing 10.2 ml/min Est GFR ( Amer) 14.8 ml/min Est GFR (Non-Af Amer) 12.8 ml/min BUN/Creatinine Ratio 21.7 H (10-20) Glucose 127 H (70-99(Fasting)) mg/dl Calcium 9.1 (8.5-10.1) mg/dl Total Bilirubin 0.3 (0.2-1.0) mg/dl AST 17 (13-39) U/L ALT 9 (7-52) U/L Alkaline Phosphatase 84 (34-104) U/L Total Protein 6.8 (6.0-8.3) gm/dl Albumin 3.8 (3.4-5.0) gm/dl Globulin 3.0 (2.5-4.0) gm/dl Albumin/Globulin Ratio 1.3 (0.9-2) Lipase 144 H (11-82) U/L Urine Color Dark Yellow Urine Appearance Turbid A (Clear) Urine pH 8.0 H (4.5-7.5) Ur Specific [place] 1.018 (1.000-1.030) Urine Protein 4+ H (Negative) Urine Glucose (UA) Negative (Negative) Urine Ketones Trace H (Negative) Urine Blood 2+ H (Negative) Urine Nitrite Negative (Negative) Urine Bilirubin Negative (Negative) Urine Urobilinogen Negative (Negative) Ur Leukocyte Esterase 3+ H (Negative) Urine WBC (Auto) >30 H (0-5) /hpf Urine RBC (Auto) 5-10 H (0-4) /hpf U Hyaline Cast (Auto) 1-5 (0-5) /lpf U Epithel Cells (Auto) >30 H (0-5) /lpf Urine Bacteria (Auto) 4+ H (Negative) Granular Casts 1-5 H (0) /lpf Urine Yeast Not Reportable Administered Medications Discontinued Medications Sodium Chloride (Nss) 500 mls @ 999 mls/hr IV .Q31M STA Stop: 05/01/22 10:06 Last Infusion: 05/01/22 10:37 Dose: 0 mls/hr Documented By: Admin: 05/01/22 10:06 Dose: 999 mls/hr Documented By: AM Sodium Chloride (Nss 1000ml) 500 mls @ 999 mls/hr IV .Q31M ONE Stop: 05/01/22 10:47 Last Infusion: 05/01/22 11:23 Dose: 0 mls/hr Documented By: Admin: 05/01/22 10:52 Dose: 999 mls/hr Documented By: BRIDGETT Sodium Chloride (Nss 1000ml) 500 mls @ 999 mls/hr IV .Q31M ONE Stop: 05/01/22 11:21 Last Admin: 05/01/22 13:47 Dose: 999 mls/hr Documented By: BRIDGETT Ceftriaxone Sodium (Rocephin) 2,000 mg in 70 mls @ 140 mls/hr IV NOW STA Stop: 05/01/22 11:38 Last Infusion: 05/01/22 11:54 Dose: 0 mls/hr Documented By: Admin: 05/01/22 11:24 Dose: 140 mls/hr Documented By: BRIDGETT Imaging Data Radiologist's Impression: Abdomen/Pelvis CT 05/01/22 09:[address] WITHOUT CONTRAST CT DOSE: 625.58 mGy.cm HISTORY: Acute generalized abdominal pain with diarrhea diarrhea, poss colitis TECHNIQUE: Multiaxial CT images of the abdomen and pelvis were performed without contrast. A dose lowering technique was utilized adhering to the principles of ALARA. COMPARISON STUDY: 02/02/2022 FINDINGS: Limited exam secondary to positioning and lack of contrast. With extensive coronary artery calcifications. Mild subsegmental bibasilar atelectasis. No pneumatosis or pneumoperitoneum. Unremarkable unenhanced spleen, moderately atrophic pancreas. Adrenal glands are unremarkable. The gallbladder is not visualized and may be surgically absent. Liver is within normal limits. Symmetrically atrophic kidneys. Exophytic 10 mm cyst of the lateral interpolar left kidney. No urolith or hydronephrosis. Circumferential urinary bladder wall thickening with perivesicular stranding. Ill-defined hyperattenuation is noted within the dependent urinary bladder, greatest on the right. Hysterectomy. No adnexal mass lesion. Atherosclerosis of the aorta without aneurysm. Infrarenal IVC filter appears to be partially extraluminal. No lymphadenopathy identified. Moderate sized hiatal hernia with partially intrathoracic stomach. Mild wall thickening of the duodenum with trace adjacent stranding extending into the pancreaticoduodenal groove. Colonic diverticulosis without acute diverticulitis. Layering colonic air-fluid levels. The appendix is likely surgically absent. No bowel obstruction or colonic wall thickening. Prior ventral abdominal wall herniorrhaphy. Degenerative changes of the spine, pelvis and hips. IMPRESSION: 1. Mild wall thickening of the duodenum with trace adjacent inflammatory stranding extending to the pancreaticoduodenal groove. Findings are suspicious for a mild nonspecific duodenitis versus peptic ulcer disease. Correlation with serum lipase recommended to exclude pancreatitis. 2. No bowel obstruction or pneumoperitoneum. 3. Colonic air-fluid levels compatible with diarrheal illness. 4. Suggested cystitis with ill-defined dependent hyperattenuation suggestive of tiny urinary bladder calculi. A partially calcified urothelial lesion could appear similarly. No hydronephrosis. 5. Hiatal hernia. 6. Additional findings as above. ACT 112: Negative or not required by law. The above report was generated using voice recognition software. It may contain grammatical, syntax or spelling errors. Electronically signed by: Noah Negron M.D. 05/01/2022 10:46 AM Chest X-Ray 05/01/22 09:36 XR chest 1V portable HISTORY: 87 years-old Female weak acute weakness COMPARISON: Chest radiograph 02/25/2022 TECHNIQUE: Portable AP view of the chest FINDINGS: Cardiomediastinal and hilar silhouettes are within normal limits. The patient is mildly rotated towards the left. No pneumothorax, pleural effusion, airspace consolidation or overt pulmonary edema. Degenerative changes of the shoulders and spine. IVC filter. Chronic appearing deformity of the proximal left humerus. IMPRESSION: No acute process. ACT 112: Negative or not required by law. The above report was generated using voice recognition software. It may contain grammatical, syntax or spelling errors. Electronically signed by: Noah Negron M.D. 05/01/2022 9:57 AM Discharge Plan Visit Data Chief Complaint: Diarrhea Stated Complaint: DIARRHEA ED Provider: Gomez Barksdale Discharge Problem: TIAN (acute kidney injury), Acute UTI, Diarrhea, Acute pancreatitis Patient Disposition: Admitted As Inpatient Condition: Fair Discharge Instructions Interventions: ED Discharge Assessment Last Done: 05/01/22 14:37
--- NOTE | 2022-05-01 09:59 | XRay Report ---
XR chest 1V portable HISTORY: 87 years-old Female weak acute weakness COMPARISON: Chest radiograph 02/25/2022 TECHNIQUE: Portable AP view of the chest FINDINGS: Cardiomediastinal and hilar silhouettes are within normal limits. The patient is mildly rotated towar ds the left. No pneumothorax, pleural effusion, airspace consolidation or overt pulmonary edema. Dege nerative changes of the shoulders and spine. IVC filter. Chronic appearing deformity of the proximal left humerus. IMPRESSION: No acute process. ACT 112: Negative or not required by law. The above report was generated using voice recognition software. It may contain grammatical, syntax o r spelling errors. Electronically signed by: Noah Negron M.D. 05/01/2022 9:57 AM
[2022-05-01 10:15] LABS: Basophils # (auto) 0.02 K/uL (0-0.2); Basophils % (auto) 0.3 %; Eosinophils # (auto) 0.04 K/uL (0-0.50); Eosinophils % (auto) 0.5 %; Hematocrit (blood only) 45.2 % (34.1-44.9); Hemoglobin 14.9 g/dl (12.0-16.0); Immature Granulocytes # (auto) 0.05 K/uL (0.00-0.02); Immature Granulocytes % (auto) 0.6 %; Lymphocytes # (auto) 1.55 K/uL (1.2-3.4); Lymphocytes % (auto) 19.9 %; Mean Corpuscular Hemoglobin 31.2 pg (25.0-34.0); Mean Corpuscular Volume 94.6 fL (80.0-100.0); Mean Platelet Volume 10.3 fL (9.4-12.3); Neutrophils # (auto) 5.43 K/uL (1.4-6.5); Neutrophils % (auto) 69.7 %; Platelet Count 243 K/uL (130-400); Red Blood Count 4.78 M/uL (3.93-5.22); White Blood Count 7.79 K/ul (4.8-10.8)
[2022-05-01] MEDS ORDERED: SODIUM CHLORIDE 0.9% 1000ML 500 ML IV ONE ×2 (10:17→10:51)
[2022-05-01 10:34] LABS: Albumin Globulin Ratio 1.3 (0.9-2); Albumin Level 3.8 gm/dl (3.4-5.0); BUN Creatinine Ratio 21.7 (10-20); Bilirubin,Total 0.3 mg/dl (0.2-1.0); Calcium 9.1 mg/dl (8.5-10.1); Creatinine Clr Calc Pharmacy 10.2 ml/min; Est GFR (African American) 14.8 ml/min; Est GFR (Non-African American) 12.8 ml/min; Potassium 5.7 mmol/L (3.5-5.1); Total Protein 6.8 gm/dl (6.0-8.3)
--- NOTE | 2022-05-01 10:49 | CT Scan Report ---
ABDOMEN AND PELVIS CT WITHOUT CONTRAST CT DOSE: 625.58 mGy.cm HISTORY: Acute generalized abdominal pain with diarrhea diarrhea, poss colitis TECHNIQUE: Multiaxial CT images of the abdomen and pelvis were performed without contrast. A dose lo wering technique was utilized adhering to the principles of ALARA. COMPARISON STUDY: 02/02/2022 FINDINGS: Limited exam secondary to positioning and lack of contrast. With extensive coronary artery calcifications. Mild subsegmental bibasilar atelectasis. No pneumatosis or pneumoperitoneum. Unremark able unenhanced spleen, moderately atrophic pancreas. Adrenal glands are unremarkable. The gallbladde r is not visualized and may be surgically absent. Liver is within normal limits. Symmetrically atrophic kidneys. Exophytic 10 mm cyst of the lateral interpolar left kidney. No urolit h or hydronephrosis. Circumferential urinary bladder wall thickening with perivesicular stranding. Il l-defined hyperattenuation is noted within the dependent urinary bladder, greatest on the right. Hyst erectomy. No adnexal mass lesion. Atherosclerosis of the aorta without aneurysm. Infrarenal IVC filte r appears to be partially extraluminal. No lymphadenopathy identified. Moderate sized hiatal hernia with partially intrathoracic stomach. Mild wall thickening of the duoden um with trace adjacent stranding extending into the pancreaticoduodenal groove. Colonic diverticulosi s without acute diverticulitis. Layering colonic air-fluid levels. The appendix is likely surgically absent. No bowel obstruction or colonic wall thickening. Prior ventral abdominal wall herniorrhaphy. Degenerative changes of the spine, pelvis and hips. IMPRESSION: 1. Mild wall thickening of the duodenum with trace adjacent inflammatory stranding extending to the p ancreaticoduodenal groove. Findings are suspicious for a mild nonspecific duodenitis versus peptic ul cer disease. Correlation with serum lipase recommended to exclude pancreatitis. 2. No bowel obstruction or pneumoperitoneum. 3. Colonic air-fluid levels compatible with diarrheal illness. 4. Suggested cystitis with ill-defined dependent hyperattenuation suggestive of tiny urinary bladder calculi. A partially calcified urothelial lesion could appear similarly. No hydronephrosis. 5. Hiatal hernia. 6. Additional findings as above. ACT 112: Negative or not required by law. The above report was generated using voice recognition software. It may contain grammatical, syntax o r spelling errors. Electronically signed by: Noah Negron M.D. 05/01/2022 10:46 AM
[2022-05-01 11:08] LABS: Appearance Urine Turbid (Clear); Bacteria Urine Automated 4+ (Negative); Bilirubin Urine Negative (Negative); Blood Urine 2+ (Negative); Color Urine Dark Yellow; Epithelial Cell Urine Auto >30 /lpf (0-5); Glucose Urine UA Negative (Negative); Ketones Urine Trace (Negative); Leukocyte Esterase Urine 3+ (Negative); Nitrite Urine Negative (Negative); Specific Gravity Urine 1.018 (1.000-1.030); Urobilinogen Urine Negative (Negative); WBC Urine Automated >30 /hpf (0-5)
[2022-05-01] MEDS ORDERED: cefTRIAXone SODIUM 2,000 MG/70 ML BAG IV STA (11:09)
[2022-05-01 11:12] LABS: Protein Urine 4+ (Negative)
--- NOTE | 2022-05-01 12:00 | History & Physical Report ---
Date of Service May 01, 2022 Assessment & Plan (1) TIAN (acute kidney injury): Plan: Known CKD with ongoing diarrhea for some time with nausea and vomiting since this morning Presented with BUN of 67 and creatinine 3.09 from 1.18 in January Received 1 L of fluid in the ER and will continue intravenous fluid We will recheck PRP at 12 and monitor accordingly Advised to drink more fluid (2) Acute UTI: Plan: UA suggestive of infection Will send for culture Ceftriaxone has been added (3) Chronic kidney disease: Plan: Known chronic kidney disease (4) Dementia: Plan: History of dementia without any acute delirium Communicating with yes or no and does not follow commands all the time (5) Depression: Plan: Continue current medication (6) HTN (hypertension): Plan: We will continue metoprolol but hold lisinopril (7) Hypercholesterolemia: Plan: Continue statin (8) Hyperkalemia: Plan: IV fluid and recheck DVT prophylaxis Subcu heparin CODE STATUS DNR as per the record from [facility] History of Present Illness Chief Complaint: Decreased responsiveness with diarrhea and vomiting Primary Care Provider: [facility] 87-year-old male with significant past medical history of dementia, chronic kidney disease, depression, hypertension, CAD and hyperlipidemia apparently was sent in from [facility] with decreasing responsiveness associated with ongoing diarrhea and vomiting since this morning. Reported to have fever without any chest pain and no shortness of breath, no report of increasing distress due to any kind of pain. The patient is DNR and no significant history is available from the patient and no family members are available as well but she was noted to be DNR from the [facility]. She was communicating with yes 1 now but did not complain of any pain. Noted to have TIAN on CKD , hyperkalemia and probable kidney infection. She was started with intravenous ceftriaxone and intravenous fluid and was admitted to medical telemetry unit for continuation of care Allergies Allergy/AdvReac Type Severity Reaction Status Date / Time methadone Allergy Verified 12/08/21 15:26 propoxyphene Allergy Verified 12/08/21 15:26 Home Medications Medication Instructions Recorded Confirmed Type ferrous sulfate 325 mg (65 mg 325 mg PO DAILY #30 tabs 12/31/18 05/01/22 History iron) tablet cholecalciferol (vitamin D3) 25 1,000 unit PO DAILY #30 tabs 05/24/21 05/01/22 Rx mcg (1,000 unit) tablet sennosides 8.6 mg capsule 8.6 mg PO BID #60 caps 05/25/21 02/02/22 Rx donepezil 10 mg tablet 10 mg PO DAILY #90 tabs 05/27/21 05/01/22 Rx rosuvastatin 10 mg tablet 10 mg PO DAILY #90 tabs 06/21/21 02/02/22 Rx aspirin 81 mg tablet,delayed 81 mg PO DAILY #90 tabs 06/24/21 05/01/22 Rx release magnesium oxide 400 mg PO DAILY #30 caps 06/24/21 05/01/22 Rx lisinopril 5 mg tablet 5 mg PO DAILY #30 tabs 12/08/21 05/01/22 Rx metoprolol succinate 25 mg 12.5 mg PO DAILY 02/02/22 02/02/22 History tablet,extended release 24 hr sertraline 25 mg tablet 25 mg PO DAILY 02/02/22 05/01/22 History amoxicillin 500 mg capsule 500 mg PO BID #3 caps 02/07/22 Rx Oyster Shell Calcium 500 500 mg PO 1XD 05/01/22 05/01/22 History multivitamin 05/01/22 History polyethylene glycol 3350 17 17 g PO PRN Constipation 05/01/22 History gram/dose oral powder Past Med/Surg History Medical History CAD (coronary artery disease) Chronic kidney disease Dementia Depression HTN (hypertension) Hypercholesterolemia Osteoporosis Surgical History H/O total hysterectomy History of cholecystectomy Family History Mother Asthma Diabetes Heart disease Social History Smoking Status: Unknown if ever smoked Hx Alcohol Use: No Hx Substance Use: No Preferred Language: Cymraes Communication Ability: Impaired Legal Collector Required: No Beliefs That Will Affect Care: None marital status: / Current Living Situation: Skilled Nursing Current Living Situation Comment: [facility] current occupational status: retired Feels Safe at Home: Yes Dental Care, Regularly: No Assistive Devices: Wheelchair Review of Systems Review of Systems: Unobtainable due to cognitive status Physical Exam Physical Exam: Lying in bed comfortably Constitutional: + ill appearing and average body habitus Eyes: PERRL, conjunctivae normal, anicteric sclerae ENMT: external ear and nose normal, oropharynx normal Neck: trachea midline, no thyromegaly Respiratory: no respiratory distress Auscultation: + diminished lung sounds and + crackles (Minimal crackles at the bases) Cardiovascular: Rate/Rhythm: regular rate and regular rhythm; not tachycardic Heart Sounds: normal S1, normal S2 and + murmur (2/6 ESM over precordium) Gastrointestinal (Abdomen): Inspection/Auscultation: normal bowel sounds; abdomen not distended Percussion/Palpation: abdomen soft; abdomen nontender Musculoskeletal: No acute arthritis in any joint Neurologic: Alert and awake. Generally weak, very confused, minimally communicative Results & Data Results & Data ([facility]) Vital Signs (Past 12 Hours) Vital Signs Temp Pulse Pulse Resp BP BP Pulse Ox 05/01/22 11:12 62 16 124/61 100 05/01/22 10:00 80 20 05/01/22 09:51 81 26 H 05/01/22 09:33 36.4 C L 79 30 H 124/61 95 O2 Del Method 05/01/22 11:12 Room Air 05/01/22 10:00 05/01/22 09:51 05/01/22 09:33 Room Air Laboratory Results Short CBC 05/01/22 Range/Units 10:00 WBC 7.79 (4.8-10.8) K/ul Hgb 14.9 (12.0-16.0) g/dl Hct 45.2 H (34.1-44.9) % Plt Count 243 (130-400) K/uL BMP 05/01/22 10:00 Sodium 133 L Potassium 5.7 H Chloride 100 Carbon Dioxide 22 BUN 67 H Creatinine 3.09 H Glucose 127 H Calcium 9.1 Liver Function 05/01/22 Range/Units 10:00 Total Bilirubin 0.3 (0.2-1.0) mg/dl AST 17 (13-39) U/L ALT 9 (7-52) U/L Alkaline Phosphatase 84 (34-104) U/L Albumin 3.8 (3.4-5.0) gm/dl Urine 05/01/22 Range/Units 11:00 Urine Color Dark Yellow Urine Appearance Turbid A (Clear) Urine pH 8.0 H (4.5-7.5) Ur Specific [place] 1.018 (1.000-1.030) Urine Protein 4+ H (Negative) Urine Glucose (UA) Negative (Negative) Medications Administered Current Inpatient Medications Ceftriaxone Sodium 1,000 mg/ (Dextrose) 50 mls @ 100 mls/hr IV Q24H SAMARIA; Protocol Stop: 05/06/22 11:59 Sodium Chloride (Nss 1000ml) 1,000 mls @ 125 mls/hr IV .Q8H SAMARIA Stop: 05/02/22 11:59 Code Status & VTE Plan VTE Prophylaxis Plan VTE Prophylaxis will be ordered: Yes (1) Dementia Dementia type: unspecified type Dementia behavioral or psychological symptom: without behavioral, psychotic, or mood disturbance or anxiety Dementia severity: unspecified severity Qualified Code(s): F03.90 - Unspecified dementia, unspecified severity, without behavioral disturbance, psychotic disturbance, mood disturbance, and anxiety
[2022-05-01 15:01] LABS: Calcium 7.9 mg/dl (8.5-10.1); Creatinine Clr Calc Pharmacy 12.1 ml/min; Est GFR (African American) 18.1 ml/min; Est GFR (Non-African American) 15.6 ml/min; Potassium 5.3 mmol/L (3.5-5.1)
[2022-05-01] MEDS: SODIUM CHLORIDE 0.9% 1000ML 1,000 ML IV SCH (16:15)
[2022-05-01] MEDS: CALCIUM CARBONATE 1250MG TAB PO SCH (16:58)
[2022-05-01] MEDS: HEPARIN SOD 5,000 UNIT/0.5 ML VIAL SQ SCH (21:20)
[2022-05-02] MEDS: SODIUM CHLORIDE 0.9% 1000ML 1,000 ML IV SCH ×2 (00:22→07:59)
[2022-05-02 09:36] LABS: BUN Creatinine Ratio 23.9 (10-20); Calcium 7.2 mg/dl (8.5-10.1); Creatinine Clr Calc Pharmacy 17.4 ml/min; Est GFR (Non-African American) 23.3 ml/min; Magnesium 2.2 mg/dl (1.7-2.4); Phosphorus 3.6 mg/dl (2.5-4.9); Potassium 4.7 mmol/L (3.5-5.1)
[2022-05-02] MEDS: HEPARIN SOD 5,000 UNIT/0.5 ML VIAL SQ SCH ×2 (10:21→22:30)
[2022-05-02] MEDS: FERROUS SULFATE 325 MG TAB PO SCH (10:21)
[2022-05-02] MEDS: MAGNESIUM OXIDE 400 MG TAB PO SCH (10:21)
[2022-05-02] MEDS: ROSUVASTATIN CALCIUM 10 MG TAB PO SCH (10:21)
[2022-05-02] MEDS: CHOLECALCIFEROL 1,000 UNITS 25 MCG TAB PO SCH (10:21)
[2022-05-02] MEDS: CALCIUM CARBONATE 1250MG TAB PO SCH (10:21)
[2022-05-02] MEDS: DONEPEZIL HCL 10 MG TAB PO SCH (10:22)
[2022-05-02] MEDS: ASPIRIN 81 MG ECTAB PO SCH (10:22)
[2022-05-02] MEDS: METOPROLOL SUCC 25MG EXT REL TAB PO SCH (10:22)
[2022-05-02] MEDS: SERTRALINE HCL 50 MG TABLET PO SCH (10:22)
[2022-05-02] MEDS: cefTRIAXone SODIUM 1,000 MG in DEXTROSE 5% AD-VAN 50 ML IV SCH (11:59)
--- NOTE | 2022-05-02 15:02 | Hospitalist Progress Note ---
Date of Service May 02, 2022 Assessment & Plan (1) TIAN (acute kidney injury): Plan: Known CKD with ongoing diarrhea for some time with nausea and vomiting since this morning Presented with BUN of 67 and creatinine 3.09 from 1.18 in January Received 1 L of fluid in the ER and will continue intravenous fluid We will recheck PRP at 12 and monitor accordingly Advised to drink more fluid The kidney function has been improving and the creatinine is 1.88 today We will continue IV fluid and was advised to drink more fluid (2) Acute UTI: Plan: UA suggestive of infection Will send for culture Ceftriaxone has been added Urine is growing Proteus suspicious and awaiting sensitivity (3) Chronic kidney disease: Plan: Known chronic kidney disease (4) Dementia: Plan: History of dementia without any acute delirium Communicating with yes or no and does not follow commands all the time (5) Depression: Plan: Continue current medication (6) HTN (hypertension): Plan: We will continue metoprolol but hold lisinopril (7) Hypercholesterolemia: Plan: Continue statin (8) Hyperkalemia: Plan: IV fluid and recheck DVT prophylaxis Subcu heparin CODE STATUS DNR as per the record from [facility] Admission and Anticipated Discharge Date Admission Date: May 01, 2022 Subjective 05/02/2022 The patient was seen and examined in medical telemetry unit She has been much better and seems to back to her baseline Does not have any complaints but any touch on her body she will scream with pain No fever and no chills and hemodynamically stable Review of Systems Review of Systems: Unobtainable due to cognitive status Physical Exam Physical Exam: Lying in bed comfortably Constitutional: + ill appearing and average body habitus Eyes: PERRL, conjunctivae normal, anicteric sclerae ENMT: external ear and nose normal, oropharynx normal Neck: trachea midline, no thyromegaly Respiratory: no respiratory distress Auscultation: + diminished lung sounds and + crackles (Minimal crackles at the bases) Cardiovascular: Rate/Rhythm: regular rate and regular rhythm; not tachycardic Heart Sounds: normal S1, normal S2 and + murmur (2/6 ESM over precordium) Gastrointestinal (Abdomen): Inspection/Auscultation: normal bowel sounds; abdomen not distended Percussion/Palpation: abdomen soft; abdomen nontender Musculoskeletal: No acute arthritis involving any joint Neurologic: Alert and awake. Has dementia. No acute delirium Results & Data Results & Data ([facility]) Vital Signs (Past 12 Hours) Vital Signs Temp Pulse Pulse Resp BP Pulse Ox O2 Del Method 05/02/22 10:30 Room Air 05/02/22 08:00 36.4 C L 60 18 117/70 96 Room Air 05/02/22 07:29 66 05/02/22 03:05 36.1 C L 67 18 109/61 96 Room Air Laboratory Results [facility] 05/01/22 05/02/22 14:32 08:32 Sodium 134 L 139 Potassium 5.3 H 4.7 Chloride 104 112 H Carbon Dioxide 21 21 BUN 63 H 45 H Creatinine 2.62 H D 1.88 H D Glucose 103 H 80 Calcium 7.9 L 7.2 L Medications Administered Current Inpatient Medications Aspirin (Aspirin 81 Mg Ectab) 81 mg PO DAILY [facility] Stop: 06/01/22 08:59 Last Admin: 05/02/22 10:22 Dose: 81 mg Calcium Carbonate (Calcium Carbonate 1250mg Tab) 1,250 mg PO DAILY [facility] Stop: 05/31/22 16:18 Last Admin: 05/02/22 10:21 Dose: 1,250 mg Donepezil HCl (Donepezil Hcl 10 Mg Tab) 10 mg PO DAILY [facility] Stop: 06/01/22 08:59 Last Admin: 05/02/22 10:22 Dose: 10 mg Ferrous Sulfate (Ferrous Sulfate 325 Mg Tab) 325 mg PO DAILY [facility] Stop: 06/01/22 08:59 Last Admin: 05/02/22 10:21 Dose: 325 mg Heparin Sodium (Porcine) (Heparin Sod 5,000 Unit/0.5 Ml Vial) 5,000 units SQ Q12 [facility] Stop: 05/31/22 20:59 Last Admin: 05/02/22 10:21 Dose: 5,000 units Ceftriaxone Sodium 1,000 mg/ (Dextrose) 50 mls @ 100 mls/hr IV Q24H [facility]; Protocol Stop: 05/07/22 11:59 Last Infusion: 05/02/22 12:29 Dose: Infused Magnesium Oxide (Magnesium Oxide 400 Mg Tab) 400 mg PO DAILY [facility] Stop: 06/01/22 08:59 Last Admin: 05/02/22 10:21 Dose: 400 mg Metoprolol Succinate (Metoprolol Succ 25mg Ext Rel Tab) 12.5 mg PO DAILY [facility] Stop: 06/01/22 08:59 Last Admin: 05/02/22 10:22 Dose: 12.5 mg Rosuvastatin Calcium (Rosuvastatin Calcium 10 Mg Tab) 10 mg PO DAILY [facility] Stop: 06/01/22 08:59 Last Admin: 05/02/22 10:21 Dose: 10 mg Sertraline HCl (Sertraline Hcl 50 Mg Tablet) 25 mg PO DAILY [facility] Stop: 06/01/22 08:59 Last Admin: 05/02/22 10:22 Dose: 25 mg Vitamin D (Cholecalciferol 1,000 Units 25 Mcg Tab) 1,000 units PO DAILY [facility] Stop: 06/01/22 08:59 Last Admin: 05/02/22 10:21 Dose: 1,000 units (1) Dementia Dementia type: unspecified type Dementia behavioral or psychological symptom: without behavioral, psychotic, or mood disturbance or anxiety Dementia severity: unspecified severity Qualified Code(s): F03.90 - Unspecified dementia, unspecified severity, without behavioral disturbance, psychotic disturbance, mood disturbance, and anxiety
[2022-05-03 07:30] LABS: Calcium 7.9 mg/dl (8.5-10.1); Est GFR (African American) 35.4 ml/min; Est GFR (Non-African American) 30.6 ml/min; Potassium 5.4 mmol/L (3.5-5.1)
[2022-05-03 07:38] LABS: Basophils # (auto) 0.02 K/uL (0-0.2); Basophils % (auto) 0.4 %; Eosinophils # (auto) 0.12 K/uL (0-0.50); Eosinophils % (auto) 2.1 %; Hemoglobin 11.8 g/dl (12.0-16.0); Immature Granulocytes # (auto) 0.02 K/uL (0.00-0.02); Immature Granulocytes % (auto) 0.4 %; Lymphocytes # (auto) 1.21 K/uL (1.2-3.4); Lymphocytes % (auto) 21.6 %; Mean Corpuscular Hemoglobin 31.5 pg (25.0-34.0); Mean Corpuscular Hgb Conc 31.9 g/dL (32.0-36.0); Mean Corpuscular Volume 98.7 fL (80.0-100.0); Mean Platelet Volume 10.5 fL (9.4-12.3); Monocytes # (auto) 0.59 K/uL (0.24-0.82); Monocytes % (auto) 10.5 %; Neutrophils # (auto) 3.64 K/uL (1.4-6.5); Platelet Count 188 K/uL (130-400); RDW Coefficient of Variation 13.2 % (11.5-14.5); RDW Standard Deviation 47.6 fL (36.4-46.3); Red Blood Count 3.75 M/uL (3.93-5.22)
[2022-05-03] MEDS: HEPARIN SOD 5,000 UNIT/0.5 ML VIAL SQ SCH ×2 (08:05→21:23)
[2022-05-03] MEDS: METOPROLOL SUCC 25MG EXT REL TAB PO SCH (08:05)
[2022-05-03] MEDS: CHOLECALCIFEROL 1,000 UNITS 25 MCG TAB PO SCH (08:06)
[2022-05-03] MEDS: CALCIUM CARBONATE 1250MG TAB PO SCH (08:06)
[2022-05-03] MEDS: ASPIRIN 81 MG ECTAB PO SCH (08:06)
[2022-05-03] MEDS: ROSUVASTATIN CALCIUM 10 MG TAB PO SCH (08:06)
[2022-05-03] MEDS: FERROUS SULFATE 325 MG TAB PO SCH (08:06)
[2022-05-03] MEDS: MAGNESIUM OXIDE 400 MG TAB PO SCH (08:06)
[2022-05-03] MEDS: DONEPEZIL HCL 10 MG TAB PO SCH (08:06)
[2022-05-03] MEDS: SERTRALINE HCL 50 MG TABLET PO SCH (08:06)
[2022-05-03] MEDS: SODIUM CHLORIDE 0.9% 1000ML 1,000 ML IV SCH ×2 (08:23→15:54)
--- NOTE | 2022-05-03 12:09 | Hospitalist Progress Note ---
Date of Service May 03, 2022 Assessment & Plan (1) TIAN (acute kidney injury): Plan: Known CKD with ongoing diarrhea for some time with nausea and vomiting since this morning Presented with BUN of 67 and creatinine 3.09 from 1.18 in January Received 1 L of fluid in the ER and will continue intravenous fluid We will recheck PRP at 12 and monitor accordingly Advised to drink more fluid The kidney function has been improving and the creatinine is 1.88 today We will continue IV fluid and was advised to drink more fluid Creatinine and BUN has improved to 33/1.50 We will continue small dose of intravenous fluid and was advised to drink more fluid Likely discharge tomorrow (2) Acute UTI: Plan: UA suggestive of infection Will send for culture Ceftriaxone has been added Urine is growing Proteus suspicious and awaiting sensitivity Urine is growing Proteus Mirabella's and that is pansensitive Will continue current antibiotic and give oral Keflex on discharge to finish the course for about 7 to 10 days (3) Chronic kidney disease: Plan: Known chronic kidney disease (4) Dementia: Plan: History of dementia without any acute delirium Communicating with yes or no and does not follow commands all the time We will get PT and OT evaluation prior to discharge to [facility] tomorrow (5) Depression: Plan: Continue current medication (6) HTN (hypertension): Plan: We will continue metoprolol but hold lisinopril (7) Hypercholesterolemia: Plan: Continue statin (8) Hyperkalemia: Plan: IV fluid and recheck DVT prophylaxis Subcu heparin CODE STATUS DNR as per the record from [facility] Admission and Anticipated Discharge Date Admission Date: May 01, 2022 Subjective 05/02/2022 The patient was seen and examined in medical telemetry unit She has been much better and seems to back to her baseline Does not have any complaints but any touch on her body she will scream with pain No fever and no chills and hemodynamically stable 05/03/2022 The patient was seen and examined in medical telemetry unit She has been much better and denies any symptoms Communicating normally given the history of dementia Still complains today of pain with palpation anywhere Review of Systems Review of Systems: Unobtainable due to cognitive status She says she does not have any complaint Physical Exam Physical Exam: Lying in bed comfortably Constitutional: + ill appearing and average body habitus Eyes: PERRL, conjunctivae normal, anicteric sclerae ENMT: external ear and nose normal, oropharynx normal Neck: trachea midline, no thyromegaly Respiratory: no respiratory distress Auscultation: + diminished lung sounds and + crackles (Minimal crackles at the bases) Cardiovascular: Rate/Rhythm: regular rate and regular rhythm; not tachycardic Heart Sounds: normal S1, normal S2 and + murmur (2/6 ESM over precordium) Gastrointestinal (Abdomen): Inspection/Auscultation: normal bowel sounds; abdomen not distended Percussion/Palpation: abdomen soft; abdomen nontender Musculoskeletal: No acute arthritis involving any joint Neurologic: Alert and awake. Communicating normally. Has dementia but no acute delirium Results & Data Results & [facility] ([facility]) Vital Signs (Past 12 Hours) Vital Signs Temp Pulse Pulse Resp BP Pulse Ox O2 Del Method 05/03/22 11:38 36.7 C 58 L 16 134/49 L 97 Room Air 05/03/22 08:10 Room Air 05/03/22 08:00 36.4 C L 87 20 125/55 L 97 Room Air 05/03/22 07:00 60 05/03/22 02:41 36.8 C 65 18 128/68 97 Room Air Laboratory Results Short CBC 05/03/22 Range/Units 06:08 WBC 5.60 (4.8-10.8) K/ul Hgb 11.8 L D (12.0-16.0) g/dl Hct 37.0 (34.1-44.9) % Plt Count 188 (130-400) K/uL [facility] 05/03/22 06:08 Sodium 142 Potassium 5.4 H Chloride 116 H Carbon Dioxide 21 BUN 33 H Creatinine 1.50 H D Glucose 81 Calcium 7.9 L Medications Administered Current Inpatient Medications Aspirin (Aspirin 81 Mg Ectab) 81 mg PO DAILY [facility] Stop: 06/01/22 08:59 Last Admin: 05/03/22 08:06 Dose: 81 mg Calcium Carbonate (Calcium Carbonate 1250mg Tab) 1,250 mg PO DAILY [facility] Stop: 05/31/22 16:18 Last Admin: 05/03/22 08:06 Dose: 1,250 mg Donepezil HCl (Donepezil Hcl 10 Mg Tab) 10 mg PO DAILY [facility] Stop: 06/01/22 08:59 Last Admin: 05/03/22 08:06 Dose: 10 mg Ferrous Sulfate (Ferrous Sulfate 325 Mg Tab) 325 mg PO DAILY [facility] Stop: 06/01/22 08:59 Last Admin: 05/03/22 08:06 Dose: 325 mg Heparin Sodium (Porcine) (Heparin Sod 5,000 Unit/0.5 Ml Vial) 5,000 units SQ Q12 [facility] Stop: 05/31/22 20:59 Last Admin: 05/03/22 08:05 Dose: 5,000 units Ceftriaxone Sodium 1,000 mg/ (Dextrose) 50 mls @ 100 mls/hr IV Q24H [facility]; Protocol Stop: 05/07/22 11:59 Last Infusion: 05/02/22 12:29 Dose: Infused Sodium Chloride (Nss 1000ml) 1,000 mls @ 125 mls/hr IV .Q8H [facility] Stop: 05/04/22 00:14 Last Admin: 05/03/22 08:23 Dose: 125 mls/hr Magnesium Oxide (Magnesium Oxide 400 Mg Tab) 400 mg PO DAILY [facility] Stop: 06/01/22 08:59 Last Admin: 05/03/22 08:06 Dose: 400 mg Metoprolol Succinate (Metoprolol Succ 25mg Ext Rel Tab) 12.5 mg PO DAILY [facility] Stop: 06/01/22 08:59 Last Admin: 05/03/22 08:05 Dose: 12.5 mg Rosuvastatin Calcium (Rosuvastatin Calcium 10 Mg Tab) 10 mg PO DAILY [facility] Stop: 06/01/22 08:59 Last Admin: 05/03/22 08:06 Dose: 10 mg Sertraline HCl (Sertraline Hcl 50 Mg Tablet) 25 mg PO DAILY [facility] Stop: 06/01/22 08:59 Last Admin: 05/03/22 08:06 Dose: 25 mg Vitamin D (Cholecalciferol 1,000 Units 25 Mcg Tab) 1,000 units PO DAILY [facility] Stop: 06/01/22 08:59 Last Admin: 05/03/22 08:06 Dose: 1,000 units (1) Dementia Dementia type: unspecified type Dementia behavioral or psychological symptom: without behavioral, psychotic, or mood disturbance or anxiety Dementia severity: unspecified severity Qualified Code(s): F03.90 - Unspecified dementia, unspecified severity, without behavioral disturbance, psychotic disturbance, mood disturbance, and anxiety
[2022-05-03] MEDS: cefTRIAXone SODIUM 1,000 MG in DEXTROSE 5% AD-VAN 50 ML IV SCH (12:10)
[2022-05-04 07:58] LABS: Basophils # (auto) 0.03 K/uL (0-0.2); Basophils % (auto) 0.6 %; Eosinophils # (auto) 0.09 K/uL (0-0.50); Eosinophils % (auto) 1.8 %; Hematocrit (blood only) 35.1 % (34.1-44.9); Hemoglobin 11.2 g/dl (12.0-16.0); Immature Granulocytes # (auto) 0.03 K/uL (0.00-0.02); Immature Granulocytes % (auto) 0.6 %; Lymphocytes # (auto) 1.07 K/uL (1.2-3.4); Lymphocytes % (auto) 21.1 %; Mean Corpuscular Hemoglobin 30.8 pg (25.0-34.0); Mean Corpuscular Hgb Conc 31.9 g/dL (32.0-36.0); Mean Corpuscular Volume 96.4 fL (80.0-100.0); Mean Platelet Volume 10.1 fL (9.4-12.3); Monocytes # (auto) 0.49 K/uL (0.24-0.82); Monocytes % (auto) 9.7 %; Neutrophils # (auto) 3.36 K/uL (1.4-6.5); Neutrophils % (auto) 66.2 %; Platelet Count 169 K/uL (130-400); RDW Coefficient of Variation 13.2 % (11.5-14.5); RDW Standard Deviation 47.4 fL (36.4-46.3); Red Blood Count 3.64 M/uL (3.93-5.22); White Blood Count 5.07 K/ul (4.8-10.8)
[2022-05-04 08:24] LABS: BUN Creatinine Ratio 20.8 (10-20); Calcium 7.8 mg/dl (8.5-10.1); Creatinine Clr Calc Pharmacy 27.4 ml/min; Est GFR (African American) 46.4 ml/min; Potassium 4.3 mmol/L (3.5-5.1)
[2022-05-04] MEDS: HEPARIN SOD 5,000 UNIT/0.5 ML VIAL SQ SCH (08:34)
[2022-05-04] MEDS: MAGNESIUM OXIDE 400 MG TAB PO SCH (08:34)
[2022-05-04] MEDS: DONEPEZIL HCL 10 MG TAB PO SCH (08:34)
[2022-05-04] MEDS: SERTRALINE HCL 50 MG TABLET PO SCH (08:34)
[2022-05-04] MEDS: FERROUS SULFATE 325 MG TAB PO SCH (08:34)
[2022-05-04] MEDS: METOPROLOL SUCC 25MG EXT REL TAB PO SCH ×2 (08:35→08:36)
[2022-05-04] MEDS: ASPIRIN 81 MG ECTAB PO SCH (08:35)
[2022-05-04] MEDS: CHOLECALCIFEROL 1,000 UNITS 25 MCG TAB PO SCH (08:35)
[2022-05-04] MEDS: CALCIUM CARBONATE 1250MG TAB PO SCH (08:35)
[2022-05-04] MEDS: ROSUVASTATIN CALCIUM 10 MG TAB PO SCH (08:35)
--- NOTE | 2022-05-04 10:14 | Hospitalist Progress Note ---
Date of Service May 04, 2022 Assessment & Plan (1) TIAN (acute kidney injury): Plan: per Dr. Gomez's notes with addendum: Known CKD with ongoing diarrhea for some time with nausea and vomiting since this morning Presented with BUN of 67 and creatinine 3.09 from 1.18 in January given IV fluids crea improved from 1.8 to 1.2 monitor renal function closely repeat BMP in 3-5 days (2) Acute UTI: Plan: Urine is growing Proteus that is pansensitive placed on Ceftriaxone x 2 days, discharge on oral Keflex x 5 more days to complete 1 week course (3) Chronic kidney disease: (4) Dementia: Plan: History of dementia without any acute delirium Communicating with yes or no and does not follow commands all the time (5) Depression: Plan: Continue current medication (6) HTN (hypertension): Plan: continue metoprolol BP mostly systolic 140s, hold lisinopril resume accordingly (7) Hypercholesterolemia: Plan: Continue statin (8) Hyperkalemia: Plan: resolved DVT prophylaxis Subcu heparin given CODE STATUS DNR as per the record from [facility] Disposition return to [facility] today Admission and Anticipated Discharge Date Admission Date: May 01, 2022 Subjective ff up for UTI, etc seen resting in bed, comfortable alert, cooperative pleasantly confused states she feels fine overall denies abdominal pain, nausea, fever/chills no chest pain, dyspnea, palpitations, dizziness no other symptoms Review of Systems Review of Systems: all noted and negative except for above Physical Exam Physical Exam: General- oriented x 1, not in distress, speaks in sentences with no effort or accessory muscle use Eyes- anicteric Neck- no JVD Lungs- clear BS bilaterally, no rales/wheezes Heart- normal rate, regular rhythm; no murmurs Abdomen- normal bowel sounds, nondistended, soft, nontender Extremities- trace pretibial edema, no calf tenderness Neuro- alert, oriented x 1; no gross focal neurologic deficits Skin- warm & dry Results & Data Results & Data ([facility]) Vital Signs (Past 12 Hours) Vital Signs Temp Pulse Resp BP BP Pulse Ox O2 Del Method 05/04/22 03:19 36.9 C 59 L 18 134/54 L 92 Room Air 05/03/22 22:35 36.7 C 58 L 18 154/61 H 95 Room Air all noted and reviewed including below (1) Dementia Dementia type: unspecified type Dementia behavioral or psychological symptom: without behavioral, psychotic, or mood disturbance or anxiety Dementia severity: unspecified severity Qualified Code(s): F03.90 - Unspecified dementia, unspecified severity, without behavioral disturbance, psychotic disturbance, mood disturbance, and anxiety
--- NOTE | 2022-05-04 10:28 | Discharge Summary ---
Discharge Summary Date of Service May 04, 2022 Notes For Next Care Provider Please repeat basic metabolic profile in 3 to 5 days. Monitor blood pressure. Resume lisinopril accordingly. Medication Changes From Visit Cephalexin 500 mg p.o. every 8 hours x5 days to complete 7-day course Admission HPI Per Admitting Provider 87-year-old male with significant past medical history of dementia, chronic kidney disease, depression, hypertension, CAD and hyperlipidemia [facility] with decreasing responsiveness associated with ongoing diarrhea and vomiting since this morning. Reported to have fever without any chest pain and no shortness of breath, no report of increasing distress due to any kind of pain. The patient is DNR and no significant history is available from the patient and no family members are available as well but she was noted to be DNR from the celebration [facility]. She was communicating with yes 1 now but did not complain of any pain. Noted to have TIAN on CKD , hyperkalemia and probable kidney infection. She was started with intravenous ceftriaxone and intravenous fluid and was admitted to medical telemetry unit for continuation of care Admission Exam Per Admitting Provider Physical Exam: Lying in bed comfortably Constitutional: + ill appearing and average body habitus Eyes: PERRL, conjunctivae normal, anicteric sclerae ENMT: external ear and nose normal, oropharynx normal Neck: trachea midline, no thyromegaly Respiratory: no respiratory distress Auscultation: + diminished lung sounds and + crackles (Minimal crackles at the bases) Cardiovascular: Rate/Rhythm: regular rate and regular rhythm; not tachycardic Heart Sounds: normal S1, normal S2 and + murmur (2/6 ESM over precordium) Gastrointestinal (Abdomen): Inspection/Auscultation: normal bowel sounds; abdomen not distended Percussion/Palpation: abdomen soft; abdomen nontender Musculoskeletal: No acute arthritis in any joint Neurologic: Alert and awake. Generally weak, very confused, minimally communicative Principal Dx & Hospital Course #1 = Principal Diagnosis (1) TIAN (acute kidney injury): per Dr. Gomez's notes with addendum: Known CKD with ongoing diarrhea for some time with nausea and vomiting since this morning Presented with BUN of 67 and creatinine 3.09 from 1.18 in January given IV fluids crea improved from 1.8 to 1.2 monitor renal function closely repeat BMP in 3-5 days (2) Acute UTI: Urine is growing Proteus that is pansensitive placed on Ceftriaxone x 2 days, discharge on oral Keflex x 5 more days to complete 1 week course (3) Chronic kidney disease: (4) Dementia: History of dementia without any acute delirium Communicating with yes or no and does not follow commands all the time (5) Depression: Continue current medication (6) HTN (hypertension): continue metoprolol BP mostly systolic 140s, hold lisinopril resume accordingly (7) Hypercholesterolemia: Continue statin (8) Hyperkalemia: resolved DVT prophylaxis Subcu heparin given CODE STATUS DNR as per the record from [facility] Disposition return to [facility] today Discharge Exam General- oriented x 1, not in distress, speaks in sentences with no effort or accessory muscle use Eyes- anicteric Neck- no JVD Lungs- clear BS bilaterally, no rales/wheezes Heart- normal rate, regular rhythm; no murmurs Abdomen- normal bowel sounds, nondistended, soft, nontender Extremities- trace pretibial edema, no calf tenderness Neuro- alert, oriented x 1; no gross focal neurologic deficits Skin- warm & dry Updated Medication List Medication Instructions Recorded Confirmed Type ferrous sulfate 325 mg (65 mg 325 mg PO DAILY #30 tabs 12/31/18 05/01/22 History iron) tablet cholecalciferol (vitamin D3) 25 1,000 unit PO DAILY #30 tabs 05/24/21 05/01/22 Rx mcg (1,000 unit) tablet sennosides 8.6 mg capsule 8.6 mg PO BID #60 caps 05/25/21 02/02/22 Rx donepezil 10 mg tablet 10 mg PO DAILY #90 tabs 05/27/21 05/01/22 Rx rosuvastatin 10 mg tablet 10 mg PO DAILY #90 tabs 06/21/21 02/02/22 Rx aspirin 81 mg tablet,delayed 81 mg PO DAILY #90 tabs 06/24/21 05/01/22 Rx release magnesium oxide 400 mg PO DAILY #30 caps 06/24/21 05/01/22 Rx lisinopril 5 mg tablet 5 mg PO DAILY #30 tabs 12/08/21 05/01/22 Rx metoprolol succinate 25 mg 12.5 mg PO DAILY 02/02/22 02/02/22 History tablet,extended release 24 hr sertraline 25 mg tablet 25 mg PO DAILY 02/02/22 05/01/22 History amoxicillin 500 mg capsule 500 mg PO BID #3 caps 02/07/22 Rx Oyster Shell Calcium 500 500 mg PO 1XD 05/01/22 05/01/22 History multivitamin 05/01/22 History polyethylene glycol 3350 17 17 g PO PRN Constipation 05/01/22 History gram/dose oral powder cephalexin 500 mg capsule 500 mg PO Q8H 5 days #15 caps 05/04/22 Rx Hospital Stay Data Consultations 05/01/22 11:09 ED Decision to Admit Stat Diagnostic Imagining Performed 05/01/22 09:36 CT abd pelvis wo con Stat ABDOMEN AND PELVIS CT WITHOUT CONTRAST CT DOSE: 625.58 mGy.cm HISTORY: Acute generalized abdominal pain with diarrhea diarrhea, poss colitis TECHNIQUE: Multiaxial CT images of the abdomen and pelvis were performed without contrast. A dose lowering technique was utilized adhering to the principles of ALARA. COMPARISON STUDY: 02/02/2022 FINDINGS: Limited exam secondary to positioning and lack of contrast. With extensive coronary artery calcifications. Mild subsegmental bibasilar atelectasis. No pneumatosis or pneumoperitoneum. Unremarkable unenhanced spleen, moderately atrophic pancreas. Adrenal glands are unremarkable. The gallbladder is not visualized and may be surgically absent. Liver is within normal limits. Symmetrically atrophic kidneys. Exophytic 10 mm cyst of the lateral interpolar left kidney. No urolith or hydronephrosis. Circumferential urinary bladder wall thickening with perivesicular stranding. Ill-defined hyperattenuation is noted within the dependent urinary bladder, greatest on the right. Hysterectomy. No adnexal mass lesion. Atherosclerosis of the aorta without aneurysm. Infrarenal IVC filter appears to be partially extraluminal. No lymphadenopathy identified. Moderate sized hiatal hernia with partially intrathoracic stomach. Mild wall thickening of the duodenum with trace adjacent stranding extending into the pancreaticoduodenal groove. Colonic diverticulosis without acute diverticulitis. Layering colonic air-fluid levels. The appendix is likely surgically absent. No bowel obstruction or colonic wall thickening. Prior ventral abdominal wall herniorrhaphy. Degenerative changes of the spine, pelvis and hips. IMPRESSION: 1. Mild wall thickening of the duodenum with trace adjacent inflammatory stranding extending to the pancreaticoduodenal groove. Findings are suspicious for a mild nonspecific duodenitis versus peptic ulcer disease. Correlation with serum lipase recommended to exclude pancreatitis. 2. No bowel obstruction or pneumoperitoneum. 3. Colonic air-fluid levels compatible with diarrheal illness. 4. Suggested cystitis with ill-defined dependent hyperattenuation suggestive of tiny urinary bladder calculi. A partially calcified urothelial lesion could appear similarly. No hydronephrosis. 5. Hiatal hernia. 6. Additional findings as above. ACT 112: Negative or not required by law. The above report was generated using voice recognition software. It may contain grammatical, syntax or spelling errors. Electronically signed by: Noah Negron M.D. 05/01/2022 10:46 AM Pending Results Patient Have Any Pending Studies at Discharge: Yes Discharge Instructions Given to Patient (Per Discharging Provider) PLEASE REFER TO YOUR NEW MEDICATION LIST AND FOLLOW INSTRUCTIONS CAREFULLY. YOUR NEW MEDICATIONS INCLUDE: Cephalexin- 500mg po q8h x 5 days PLEASE CALL YOUR PRIMARY CARE PHYSICIAN OR RETURN TO THE ER IF WITH WORSENING OF SYMPTOMS, INCLUDING weakness, fever, confusion, etc FOLLOW UP WITH PRIMARY CARE PHYSICIAN in 1 week. Total Time Total Time Spent Total Time Spent (In Minutes): >30 minutes
[2022-05-04] MEDS: cefTRIAXone SODIUM 1,000 MG in DEXTROSE 5% AD-VAN 50 ML IV SCH (12:00)
== END 2022-05-04 17:32 | DRG 683 ==
LOC: ED 09:21 → 2N 11:44 → SUATTDRO 11:44 → 2N 14:37